=== PATIENT | male | born 1955 | race Caucasian/White ===

== ENCOUNTER 2023-12-17 08:07 | Outpatient (AMB) | payer BC, SELFPAY ==
--- NOTE | 2023-12-17 08:38 | MHC.PC.OV ---
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 Intake Note: New patient visit Seismograph Shooter Required: No Allergies No Known Allergies Allergy (Verified 12/17/23 08:39) Tobacco use date assessed: 12/17/23 Fall risk assessment: No Falls in past year Last assessed Fall Risk: 12/17/23 Dental Screening Dental Screen Date: 12/17/23 Did you have a dental visit in the last 12 months?: Yes Did you have a dental problem in the last 6 months where you did not have access to dental care?: No Was dental information given to patient?: Patient has dentist [facility] Social History (Updated 12/17/23 @ 08:47 by Hattie Urbina [facility]) Housing: House Patient Tobacco Use Status: Never used Tobacco e-Cigarette/Vaping Use: Never Used Second Hand Smoke Exposure: No service: No Current occupational status: retired Cognitive needs: No Hearing needs: No Vision needs: No Questionnaire AUDIT C Alcohol Use Questionnaire (AUDIT-C) 1. How often do you have a drink containing alcohol?: 4 or more times a week 2. How many drinks containing alcohol do you have on a typical day when you are drinking?: 1 or 2 3. How often do you have six or more drinks on one occasion?: Less than monthly (rarely) Total Score: 5 Coding
[2023-12-17 08:47] VITALS: BP 172/92; PULSE 70; RESP 14; TEMP 36.9; O2SAT 97; BMI 30.3
--- NOTE | 2023-12-17 08:52 | AM.OFFWIN_ITS ---
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 Patient Tobacco Use Status: Never used Tobacco Allergies No Known Allergies Allergy (Verified 12/17/23 08:52) Medication List - Last Reconciled 12/17/23 by KATHRYN Barnes- No Known Home Meds HPI HPI Comments History of Present Illness Details 68 y/o male here for a walk in visit for uncontrolled HTN reports white coat syndrome has been w/o PCP for a short time, will be re-est care w/ Dr Nuñez went to [facility] last Sunday - will be having prostate surgery, his BP was 204/95 mg/dl Has never been on medications Denies neuro or cardiac complaints Exam: Awake alert NAD RRR LS CTAB No edema BLE Neurovasc intact Plan: Start losartan 25 mg po QD Monitor BP at home daily and bring log to next appt FU with PCP 1-2 weeks PFS Social History (Updated 12/17/23 @ 08:47 by Hattie Urbina CMA) Housing: House Patient Tobacco Use Status: Never used Tobacco e-Cigarette/Vaping Use: Never Used Second Hand Smoke Exposure: No service: No Current occupational status: retired Cognitive needs: No Hearing needs: No Vision needs: No Physical Exam Vital Signs: Last Vital Signs Temp 98.4 F 12/17/23 08:47 Pulse 70 12/17/23 08:47 Resp 14 12/17/23 08:47 BP 172/92 H 12/17/23 08:47 Pulse Ox 97 12/17/23 08:47 Oxygen Delivery Method Room Air 12/17/23 08:47 BMI result Body Mass Index 30.3 Assessment & Plan Assessment & Plan (1) HTN (hypertension): Code(s): I10 - Essential (primary) hypertension Qualifiers: Hypertension type: primary hypertension Qualified Code(s): I10 - Essential (primary) hypertension Plan: . Plan . Medications: New losartan 25 mg PO DAILY 30 tabs 1RF Patient Instructions: Walk-In Care (Urgent Care): We Make it Easy Walk-in for urgent medical issues such as: ? Seasonal Allergies ? Insect Bites ? Cough ? Diarrhea ? Acute Asthma Attacks ? Back, Knee or Joint Pain ? Ear Infection ? Fever without a Rash ? Headaches ? Nausea ? [place], Rash or Skin Irritation ? Sore Throat ? Sports Physicals ? Vomiting Most insurances are accepted. Patients do not need to be part of the [facility] to seek care at the walk-in clinic. Locations [facility] [place] [address] ? [phone] [facility] in [place] provides services to ages 18 and over. Open Sunday-Sunday: 8 a.m. to 5 p.m. and Sunday: 9 a.m. to 3 p.m.* *Hours may vary due to staffing availability. To confirm Walk-In Care hours in [place], please call [phone]. [address] [place] [address] ? [phone] [facility] in [place] provides services to ages 12 and over. Open Sunday-Sunday: 8 a.m. to 5 p.m. Hours may vary due to staffing availability. To confirm Walk-In Care hours in [place], please call [phone]. LABORATORY SERVICES: [facility] ? Primary Location [address] [place] [address] Sunday through Sunday 6:00 AM ? 5:00 PM Sunday 7:00 AM ? 11:00 AM* [phone] The [facility] is centrally located near the front entrance of the [facility] for easy outpatient access. Convenient parking is provided for outpatients. *Hours may vary due to staffing availability. To confirm Laboratory hours for any location, please call [phone]. Offsite Location For your convenience, we offer offsite laboratory draw stations at the following locations: [address] [place] [address] ? [facility] [address], [address] Sunday through Sunday 7:30 AM ? 1:00 PM* [phone] *Hours may vary due to staffing availability. To confirm Laboratory hours for any location, please call [phone]. [place] ? [address] Sunday through Sunday 6:00 AM ? 3:30 PM* Sunday 6:30 AM ? 3 PM* [phone] *Hours may vary due to staffing availability. To confirm Laboratory hours for any location, please call [phone]. [address] [facility] Sunday through Sunday 7:30 AM ? 4:00 PM* [phone] *Hours may vary due to staffing availability. To confirm Laboratory hours for any location, please call [phone]. [address] [facility] Sunday through 9:00 AM ? 4:00 PM* *Hours may vary due to staffing availability. To confirm Laboratory hours for any location, please call [phone]. Appointments are not necessary. Walk-ins are welcome. Like all the departments throughout the [facility], our Lab undergoes frequent reviews to ensure the quality and accuracy of test results, and our staff takes special pride in its status as a nationally accredited facility. Patient Portal: ONE PATIENT. ONE RECORD. BETTER CARE. [facility] has a fully integrated, cutting- edge mobile electronic health information system that has revolutionized the way we care for our patients and manage our organization. This system improves communication and coordination enabling us to provide safe, higher-quality care, and an overall positive experience for staff and patients. Our first priority, as always, is to deliver the highest quality care possible. The system is running in the background supporting that priority. This portal is for all [facility] services and practices. If you are experiencing any technical difficulties with enrolling or logging into the Patient Portal please complete the [facility] Patient Portal Technical Support Form. [facility] now offers a new secure on-line interactive tool for patients to review their health information ? Patient Portal. This interactive web portal will enable patients and their families to take an active role in their care by providing easy, secure access to their health information via the internet. The Patient Portal provides patients with instant access to their health information, including laboratory results, medications, allergies, demographic information, visit history, and more. In addition to managing their own care, parents and health care proxies with authorized consent will appreciate the ability to access the records of those individuals for whom they provide care. Please note: if you wish to gain access (Proxy) to another patient?s portal, you will be required to come to the Medical Records Department in person at [facility]. Both the patient giving proxy access and the proxy will need to provide photo identification and complete the appropriate authorization. The Patient Portal also allows track their appointments online. The [facility] Patient Portal also saves patients time by allowing them to submit updates to their demographic and contact information prior to their visits. Portal email notifications will also alert patients to any new activity on their portal, such as test results and new appointments. In order to initially enroll in the [facility] Patient Portal, you will need to enter some required information including the following: ? your [facility] Medical Record number ? your personal home email address ? name ? date of Please note: In order to enroll in the [facility] Patient Portal, we need to have your email address on file in your electronic medical record. The email address needs to be specific for one person (yourself) in order for your Portal enrollment to be successful. You can update your email address in person with our Registration staff when you are registering for a hospital visit. Otherwise, you will need to come to the Health Information Management (Medical Records) Department at [facility]. We are open from Sunday ? Sunday from 7:30 a.m. ? 4:30 p.m. You will be required to present a photo id. Once you have successfully enrolled in the Patient Portal, you will receive a one-time user id and password for the Portal, sent to your email address. This will allow you to log into the Patient Portal within 99 hrs and reset your own logon id and password, and define personal security questions. Once your permanent login and password have been set, you can log into the [facility] Patient Portal at any time via the blue button above or from the Portal Logon button on any page of the [facility] website. [facility] encourage all of our patients to enroll in Patient Portal as it presents a valuable opportunity for patients and their families to actively participate in their care and stay healthy Welcome to [facility]. We look forward to working with you. Coding Level of Care Code Est Pt Level 3 (61030) Diagnoses Primary hypertension I10 Hypertension type: primary hypertension
[2023-12-17 08:56] VITALS: BP 158/80
== END 2023-12-17 09:07 | disposition home or self-care (01) ==
PROVIDERS: PCP Internal Medicine; Visit Provider Nurse Practitioner Family
DX: I10 Essential (primary) hypertension (principal)
CPT/HCPCS: 99213

== ENCOUNTER 2023-12-25 08:21 | Outpatient (AMB) | payer BC, SELFPAY ==
[2023-12-25 08:27] VITALS: BP 124/68; PULSE 77; RESP 12; O2SAT 99; BMI 29.7
--- NOTE | 2023-12-25 08:27 | A.OFFPC_ITS ---
Vital Signs 12/25/23 08:27 Height 5 ft 9 in Weight 201 lb BMI 29.7 BP 124/68 Blood Pressure Location Rt brachial Position Sitting Respiration 12 Pulse 77 Pulse Source Pulse Oximeter Pulse Oximetry (%) 99 Oxygen Delivery Method Room Air Intake Visit Reasons: Establish Care not a transfer Intake Note: Patients reports he us here to discuss BP meds. [employer] Clerk Required: No Accompanied by: Self / Same As Patient Allergies No Known Allergies Allergy (Verified 12/17/23 08:52) Fall risk assessment: No Falls in past year Last assessed Fall Risk: 12/25/23 Dental Screening Dental Screen Date: 12/25/23 Did you have a dental visit in the last 12 months?: Yes Did you have a dental problem in the last 6 months where you did not have access to dental care?: No Was dental information given to patient?: Patient has dentist HPI HPI Comments History of Present Illness Details 68 y/o male with a past medical history of hypertension, white coat htn, prostate cancer, presenting for follow up Heme/Onc: Prostate cancer. Upcoming prostectomy. Last visit with [facility] - 204/95 mg/dl. CV: On losartan 25mg daily. Normotensive today. Denies chest pain, dizziness, exertional dyspnea. Preventive Due in 2025 for colon cancer ROS CONSTITUTIONAL: Denies weight loss, fever and chills. HEENT: Denies changes in vision and hearing. RESPIRATORY: Denies SOB and cough. CV: Denies palpitations and CP GI: Denies abdominal pain, nausea, vomiting and diarrhea. : Denies dysuria and urinary frequency. MSK: Denies new myalgia and joint pain. SKIN: Denies rash and pruritus. NEUROLOGICAL: Denies headache PSYCHIATRIC: Denies recent changes in mood. PHYSICAL EXAM: GENERAL: Alert and oriented x 3. NAD EYES: EOMI. Anicteric. HENT: Moist mucous membranes. No scleral icterus. No cervical lymphadenopathy. LUNGS: Clear to auscultation bilaterally. CARDIOVASCULAR: Regular rate and rhythm. No murmur. No JVD. ABDOMEN: Soft, non-tender +bs EXTREMITIES: No edema. Non-tender. SKIN: No rashes or lesions. Warm. NEUROLOGIC: No focal neurological deficits. CN II-XII grossly intact PSYCHIATRIC: Cooperative. Appropriate mood and affect [facility] Medical History (Updated 01/01/24 @ 10:53 by Natalia Nuñez MD) GERD (gastroesophageal reflux disease) Back disorder HTN (hypertension) Melanoma Surgical History (Updated 12/25/23 @ 08:47 by Adrienne Mccormack CMA) Hx of knee surgery Family History (Updated 12/25/23 @ 08:49 by Adrienne Mccormack CMA) Other Stomach cancer Social History (Updated 12/25/23 @ 08:40 by Adrienne Mccormack CMA) Household Members: Significant Other Housing: House Are you a primary lawn care specialist to a significant other at home: No Do you presently have visiting nurse or other home services: No Alcohol intake: current Alcohol intake frequency: 0-2 drinks per day Alcohol type: beer Patient Tobacco Use Status: Never used Tobacco Tobacco use type: Cigarette e-Cigarette/Vaping Use: Never Used Second Hand Smoke Exposure: No service: No Current occupational status: retired Cognitive needs: No Hearing needs: No Vision needs: No Questionnaire PHQ-9 Over the last 2 weeks, how often have you been bothered by any of the following problems? 1. Little interest or pleasure in doing things: not at all 2. Feeling down, depressed, or hopeless: not at all 3. Trouble falling or staying asleep, or sleeping too much: not at all 4. Feeling tired or having little energy: not at all 5. Poor appetite or overeating: not at all 6. Feeling bad about yourself - or that you are a failure or have let yourself or your family down: not at all 7. Trouble concentrating on things, such as reading the newspaper or watching television: not at all 8. Moving or speaking so slowly that other people could have noticed. Or the opposite - being so fidgety or restless that you have been moving around a lot more than usual: not at all 9. Thoughts that you would be better off or of hurting yourself in some way: not at all Total score: 0 Depression Screening Interpretation: Negative Depression Screening Done: Yes 74633 - PHQ-9 Billing: Yes Source: Developed by Drs. Jamie Mora, Rhea Kelley, Zafar Dewitt and colleagues, with an educational yang from [employer]. Thrive Questionnaire Date Thrive assessed: 12/25/23 I am a: Patient What is your living situation today?: I have a steady place to live Within the past 12 months, did the food you bought not last and you didn't have the money to get more?: Never true Within the past 12 months, did you worry whether your food would run out before you got money to buy more?: Never true Do you have trouble paying for medicines?: No Do you have trouble getting transportation to medical appointments?: No Do you have trouble paying your heating and electricity bill?: No Do you have trouble taking care of your child, family member or friend?: No Do you have trouble with day-to-day activities such as bathing, preparing meals, shopping, managing finances, etc.?: No Are you currently unemployed and looking for a job?: No Are you interested in more education?: No Please select the resources that you would like help with: None Currently or been in a relationship where the following occur: No concerns reported THRIVE Score: 0 AUDIT C Alcohol Use Questionnaire (AUDIT-C) 1. How often do you have a drink containing alcohol?: 2-3 times a week 2. How many drinks containing alcohol do you have on a typical day when you are drinking?: 1 or 2 3. How often do you have six or more drinks on one occasion?: Never Total Score: 3 ARJUN-7 AMB Questionnaire ARJUN-7 Date ARJUN - 7 assessed: 12/25/23 Feeling nervous, anxious, or on edge: 0 = Not at all Not being able to stop or control worryin = Not at all Worrying too much about different things: 0 = Not at all Trouble relaxin = Not at all Being so restless that it is hard to sit still: 0 = Not at all Becoming easily annoyed or irritable: 0 = Not at all Feeling afraid as if something awful might happen: 0 = Not at all Total ARJUN-7 score (0-4 normal; 5-9 mild; 10-14 moderate; 15-21 severe): 0 Source: Developed by Drs. Jamie Mora, Rhea Kelley, Zafar Dewitt and colleagues, with an educational yang from [employer]. ARJUN-7 Assessment Billing ARJUN-7 Assessment Tool: ARJUN-7 Assessment 29431 Physical exam (Primary Care) Vital Signs: Last Vital Signs Pulse 77 12/25/23 08:27 Resp 12 12/25/23 08:27 BP 124/68 12/25/23 08:27 Pulse Ox 99 12/25/23 08:27 Oxygen Delivery Method Room Air 12/25/23 08:27 BMI result Body Mass Index 29.7 Tobacco/Smoking Status: Tobacco use Status Patient Tobacco Use Status Never used Tobacco 12/25/23 08:40 Tobacco use type Cigarette 12/25/23 08:40 e-Cigarette/Vaping Use Never Used 12/25/23 08:40 PHQ-9: PHQ-9 Score PHQ-9: Total score 0 01/01/24 10:51 Depression Screening Interpretation: Negative Thrive Assessment: Date of Thrive Assessment Date Thrive assessed 12/25/23 12/25/23 08:40 Currently or been in a relationship where the following occur: No concerns reported Immunizations Boostrix Tdap 2.5 Lf unit-8 mcg-5 Lf/0.5 mL intramuscular syringe Performing Provider: Natalia Nuñez MD Performing Location: [facility] Administered by: Adrienne Mccormack CMA on 12/25/23 09:23 Dose Route Admin Location Dispensed Lot Number Expiration Date NDC Shoe Associate 0.5 mL IM Right Deltoid 0.5 mL [id number] 01/03/26 [id number] [employer] VIS Given Date VIS Provided VIS Publication Date 12/25/23 Single Vaccine 20 Eligibility Eligibility Date Funding Source Not [facility] Eligible 12/25/23 Private Assessment and Plan Assessment & Plan (1) HTN (hypertension): Code(s): I10 - Essential (primary) hypertension Qualifiers: Hypertension type: primary hypertension Qualified Code(s): I10 - Essential (primary) hypertension Plan: Normotensive on current medications (2) GERD (gastroesophageal reflux disease): Code(s): K21.9 - Gastro-esophageal reflux disease without esophagitis Qualifiers: Esophagitis presence: esophagitis presence not specified Qualified Code(s): K21.9 - Gastro-esophageal reflux disease without esophagitis (3) Melanoma: Code(s): C43.9 - Malignant melanoma of skin, unspecified Qualifiers: Melanoma location: unspecified site Qualified Code(s): C43.9 - Malignant melanoma of skin, unspecified Plan: continue follow up with dermatology Orders: Orders Complete Blood Count Auto Diff 12/25/23 C43.9 - Malignant melanoma of skin, unspecified, I10 - Essential (primary) hypertension, K21.9 - Gastro-esophageal reflux disease without esophagitis, Z13.220 - Encounter for screening for lipoid disorders TDaP Immunization 12/25/23 Z23 - Encounter for immunization Comprehensive Met. Panel 12/25/23 C43.9 - Malignant melanoma of skin, unspecified, I10 - Essential (primary) hypertension, K21.9 - Gastro-esophageal reflux disease without esophagitis, Z13.220 - Encounter for screening for lipoid disorders Lipid Panel 12/25/23 C43.9 - Malignant melanoma of skin, unspecified, I10 - Essential (primary) hypertension, K21.9 - Gastro-esophageal reflux disease without esophagitis, Z13.220 - Encounter for screening for lipoid disorders Coding Level of Care Code Est Pt Level 5 (28225) Diagnoses Primary hypertension I10 Hypertension type: primary hypertension Gastroesophageal reflux disease, unspecified whether esophagitis present K21.9 Esophagitis presence: esophagitis presence not specified Malignant melanoma, unspecified site C43.9 Melanoma location: unspecified site Additional Codes ARJUN-7 Assessment Billing - ARJUN-7 Assessment Tool: ARJUN-7 Assessment 64116 ([id number])
== END 2023-12-25 09:35 | disposition home or self-care (01) ==
PROVIDERS: PCP Internal Medicine; Visit Provider Internal Medicine
DX: I10 Essential (primary) hypertension (principal); K21.9 Gastro-esophageal reflux disease without esophagitis; C43.9 Malignant melanoma of skin, unspecified
CPT/HCPCS: 90471; 90715; 99214

== ENCOUNTER 2023-12-25 10:25 | Outpatient (REF) | payer BC, SELFPAY ==
[2023-12-25 16:47] LABS: MANUAL DIFF FLAG NO
[2023-12-25 17:00] LABS: Basophils Absolute Auto 0.1 X10*3/uL (0.0-0.2); Eosinophils Absolute Auto 0.2 X10*3/uL (0.0-0.4); Eosinophils Percent Auto 2.7 % (0-4); Hematocrit 45.4 % (42.0-52.0); Hemoglobin 15.6 g/dl (14.0-18.0); Imm Gran Abs Auto 0.03 X10*3/uL (0.00-0.03); Imm Gran Pct Auto 0.4 % (0.0-0.4); Lymphocytes Percent Auto 25.5 % (20-40); Mean Corpuscular HGB Conc 34.4 g/dl (31.0-36.0); Mean Corpuscular Hemoglobin 31.3 pg (27.0-33.0); Mean Corpuscular Volume 91.2 fL (80.0-98.0); Monocytes Absolute Auto 0.5 X10*3/uL (0.1-1.2); Monocytes Percent Auto 6.4 % (2-11); Platelet Count 172 X10*3/uL (160-400); Red Blood Count 4.98 X10*6/uL (4.60-5.80); Red Cell Distribution Width 12.7 % (11.0-16.0); White Blood Count 7.9 X10*3/uL (4.8-10.8)
[2023-12-25 17:16] LABS: Alanine Aminotransferase 15 U/L (0-40); Albumin Level 4.4 g/dL (3.5-5.0); Alkaline Phosphatase 61 U/L (39-117); Anion Gap 13 (12-20); Aspartate Amino Transferase 16 U/L (5-37); Bilirubin Total 0.6 mg/dL (0.0-1.0); Blood Urea Nitrogen 17 mg/dL (9-16); Calcium 9.9 mg/dL (8.4-10.2); Carbon Dioxide 28 mmol/L (22-29); Chloride 105 mmol/L (96-108); Cholesterol 181 mg/dL (<200); Estimated Glomerular Filt Rate > 60; Glucose Random 96 mg/dL (60-115); HDL Cholesterol 40 mg/dL (>40); LDL Cholesterol Calculated 112 mg/dL (<100); Potassium 5.1 mmol/L (3.3-5.1); Sodium 141 mmol/L (135-145); Total Protein 7.2 g/dL (6.5-8.0); Triglycerides 145 mg/dL (<150)
== END 2023-12-25 10:26 | disposition home or self-care (01) ==
LOC: HO.WFDLDS 10:25
PROVIDERS: Visit Provider Internal Medicine
DX: I10 Essential (primary) hypertension (principal); C43.9 Malignant melanoma of skin, unspecified; K21.9 Gastro-esophageal reflux disease without esophagitis; Z13.220 Encounter for screening for lipoid disorders
CPT/HCPCS: 36415; 80053; 80061; 85025

== ENCOUNTER 2024-04-15 15:53 | Outpatient (AMB) | payer BC, SELFPAY ==
--- NOTE | 2024-04-15 16:04 | MHC.PC.OV ---
Vital Signs 04/15/24 16:07 04/15/24 16:11 Height 5 ft 9 in Weight 200 lb BMI 29.5 BP 146/72 H 124/72 Blood Pressure Location Lt brachial Lt brachial Position Sitting Sitting Pulse 62 Pulse Source Pulse Oximeter Pulse Oximetry (%) 98 Oxygen Delivery Method Room Air Intake Visit Reasons: PE Allergies No Known Allergies Allergy (Verified 04/15/24 16:06) Tobacco use date assessed: 04/15/24 Fall risk assessment: No Falls in past year Last assessed Fall Risk: 04/15/24 Dental Screening Dental Screen Date: 12/25/23 HPI HPI Comments History of Present Illness Details 68 y/o male with a past medical history of hypertension, white coat htn, prostate cancer, presenting for follow up Heme/Onc: Prostate cancer. Status post prostectomy 12/2023-[facility] CV: On losartan 25mg daily. Normotensive today. Readings high on home machine +10-15 systolic/+20 diastolic versus office readings. Denies chest pain, dizziness, exertional dyspnea. Follows with dermatology. History of melanoma, scattered nevi etc Preventive Due in 2025 for colon cancer Due for today Due for shingles-will get at pharmacy. ROS CONSTITUTIONAL: Denies weight loss, fever and chills. HEENT: Denies changes in vision and hearing. RESPIRATORY: Denies SOB and cough. CV: Denies palpitations and CP GI: Denies abdominal pain, nausea, vomiting and diarrhea. : Denies dysuria and urinary frequency. MSK: Denies new myalgia and joint pain. SKIN: Denies rash and pruritus. NEUROLOGICAL: Denies headache PSYCHIATRIC: Denies recent changes in mood. PHYSICAL EXAM: GENERAL: Alert and oriented x 3. NAD EYES: EOMI. Anicteric. HENT: Moist mucous membranes. No scleral icterus. No cervical lymphadenopathy. LUNGS: Clear to auscultation bilaterally. CARDIOVASCULAR: Regular rate and rhythm. No murmur. No JVD. ABDOMEN: Soft, non-tender +bs : Declines EXTREMITIES: No edema. Non-tender. SKIN: No rashes. Scattered nevi, mild rosacea NEUROLOGIC: No focal neurological deficits. CN II-XII grossly intact PSYCHIATRIC: Cooperative. Appropriate mood and affect [facility] Medical History GERD (gastroesophageal reflux disease) Back disorder HTN (hypertension) Melanoma Surgical History H/O radical prostatectomy Hx of knee surgery Family History Other Family history unknown Stomach cancer Social History Household Members: Significant Other Housing: House Are you a primary career technical education instructor to a significant other at home: No Do you presently have visiting nurse or other home services: No 75 years or older and lives alone: No Alcohol intake: current Alcohol intake frequency: 0-2 drinks per day Alcohol type: beer Patient Tobacco Use Status: Current someday Tobacco user Tobacco use type: Cigarette Cigarette Packs Per Day: 0.25 Years Smoked: 30 e-Cigarette/Vaping Use: Never Used Second Hand Smoke Exposure: No service: No Current occupational status: retired Cognitive needs: No Hearing needs: No Vision needs: No Questionnaire Thrive Questionnaire Date Thrive assessed: 04/08/24 I am a: Patient What is your living situation today?: I have a steady place to live Within the past 12 months, did the food you bought not last and you didn't have the money to get more?: Never true Within the past 12 months, did you worry whether your food would run out before you got money to buy more?: Never true Do you have trouble paying for medicines?: No Do you have trouble getting transportation to medical appointments?: No Do you have trouble paying your heating and electricity bill?: No Do you have trouble taking care of your child, family member or friend?: No Do you have trouble with day-to-day activities such as bathing, preparing meals, shopping, managing finances, etc.?: No Are you currently unemployed and looking for a job?: No Are you interested in more education?: No Please select the resources that you would like help with: None Currently or been in a relationship where the following occur: No concerns reported THRIVE Score: 0 AUDIT C Alcohol Use Questionnaire (AUDIT-C) 2. How many drinks containing alcohol do you have on a typical day when you are drinking?: 1 or 2 Total Score: 0 ARJUN-7 AMB Questionnaire ARJUN-7 Date ARJUN - 7 assessed: 12/25/23 Feeling nervous, anxious, or on edge: 0 = Not at all Not being able to stop or control worryin = Not at all Worrying too much about different things: 0 = Not at all Trouble relaxin = Not at all Being so restless that it is hard to sit still: 0 = Not at all Becoming easily annoyed or irritable: 0 = Not at all Feeling afraid as if something awful might happen: 0 = Not at all Total ARJUN-7 score (0-4 normal; 5-9 mild; 10-14 moderate; 15-21 severe): 0 Source: Developed by Drs. Jamie Mora, Rhea Kelley, Zafar Dewitt and colleagues, with an educational yang from [employer]. Physical exam (Primary Care) Vital Signs: Last Vital Signs Pulse 62 04/15/24 16:07 BP 124/72 04/15/24 16:11 Pulse Ox 98 04/15/24 16:07 Oxygen Delivery Method Room Air 04/15/24 16:07 BMI result Body Mass Index 29.5 Tobacco/Smoking Status: Tobacco use Status Tobacco use date assessed 04/15/24 04/15/24 16:11 Patient Tobacco Use Status Current someday Tobacco 04/15/24 16:11 Tobacco use type Cigarette 04/15/24 16:06 e-Cigarette/Vaping Use Never Used 04/15/24 16:06 Thrive Assessment: Date of Thrive Assessment Date Thrive assessed 04/08/24 04/15/24 16:04 Currently or been in a relationship where the following occur: No concerns reported Immunizations pneumoc 20-colten conj-dip cr(PF) 0.5 mL IM syringe Performing Provider: Natalia Nuñez MD Performing Location: [facility] [place] Family Medicine Administered by: Amna Vogt RN on 04/15/24 16:55 Dose Route Admin Location Dispensed Lot Number Expiration Date [facility] Cancer Registry Coordinator 0.5 mL IM Right Deltoid 0.5 mL [id number] 08/25/24 1199-7015-43 WYETH/PFIZER VIS Given Date VIS Provided VIS Publication Date 04/15/24 Single Vaccine 21 Eligibility Eligibility Date Funding Source Not [facility] Eligible 04/15/24 Private Coding Level of Care Code Est Pt Prev Care >65y(21573) Diagnoses Physical exam Z00.00 Malignant melanoma, unspecified site C43.9 Melanoma location: unspecified site Primary hypertension I10 Hypertension type: primary hypertension Assessment & Plan Assessment & Plan (1) Physical exam: Code(s): Z00.00 - Encounter for general adult medical examination without abnormal findings Category: Medical Plan: Preventive measures for age discussed Shingles, RSV, flu and COVID recommended (2) Melanoma: Code(s): C43.9 - Malignant melanoma of skin, unspecified Category: Medical Qualifiers: Melanoma location: unspecified site Qualified Code(s): C43.9 - Malignant melanoma of skin, unspecified Plan: Referral already placed to dermatology (3) HTN (hypertension): Code(s): I10 - Essential (primary) hypertension Category: Medical Qualifiers: Hypertension type: primary hypertension Qualified Code(s): I10 - Essential (primary) hypertension Plan: Adequately controlled on current medication Orders: Orders Pneumococcal 20 Immunization 04/15/24 Z23 - Encounter for immunization Medications: Changed From tadalafil (Cialis) Take an additional 10mg one hour prior to sexual activity as needed for erectile dysfunction 5 mg PO DAILY 110 tabs 3RF To tadalafil (Cialis) Take one tab oral daily and take an additional 10mg one hour prior to sexual activity as needed for erectile dysfunction 5 mg PO DAILY 110 tabs 3RF Refilled losartan 25 mg PO DAILY 90 tabs 3RF 90 days
[2024-04-15 16:07] VITALS: BP 146/72; PULSE 62; O2SAT 98; BMI 29.5
[2024-04-15 16:11] VITALS: BP 124/72
== END 2024-04-15 16:57 | disposition home or self-care (01) ==
PROVIDERS: PCP Internal Medicine; Visit Provider Internal Medicine
DX: Z00.00 Encounter for general adult medical examination without abnormal findings (principal); C43.9 Malignant melanoma of skin, unspecified; I10 Essential (primary) hypertension

== ENCOUNTER → 2024-04-15 15:53 | Outpatient (BNVA) | payer BC, SELFPAY | PROVIDERS: PCP Internal Medicine; Visit Provider Internal Medicine | DX: Z00.00 Encounter for general adult medical examination without abnormal findings (principal); Z23 Encounter for immunization; C43.9 Malignant melanoma of skin, unspecified; I10 Essential (primary) hypertension | CPT/HCPCS: 90471; 90677 ==

== ENCOUNTER 2024-10-14 15:35 | Outpatient (AMB) | payer BC, SELFPAY ==
--- NOTE | 2024-10-14 15:40 | A.OFFPC_ITS ---
Vital Signs 10/14/24 15:43 Height 5 ft 9 in Weight 212 lb BMI 31.3 BP 142/70 H Blood Pressure Location Rt brachial Position Sitting Respiration 14 Pulse 58 Pulse Source Pulse Oximeter Pulse Oximetry (%) 98 Oxygen Delivery Method Room Air Intake Visit Reasons: f/u Intake Note: Follow up. Lower back pain, both sides, goes down the legs. Equipment Operation Instructor Required: No Allergies No Known Allergies Allergy (Verified 10/14/24 15:42) Medication List - Last Reconciled 10/15/24 by Natalia Nuñez MD cyclobenzaprine 10 mg (2 x 5 mg) PO BEDTIME PRN losartan 25 mg PO DAILY 90 days oxycodone 5 mg PO Q8H PRN prednisone 40 mg (2 x 20 mg) PO DAILY tadalafil (Cialis) 5 mg PO DAILY Tobacco use date assessed: 10/14/24 Fall risk assessment: No Falls in past year Last assessed Fall Risk: 10/14/24 Dental Screening Dental Screen Date: 10/14/24 Did you have a dental visit in the last 12 months?: Yes Did you have a dental problem in the last 6 months where you did not have access to dental care?: No Was dental information given to patient?: Patient has dentist HPI HPI Comments History of Present Illness Details 68 y/o male with a past medical history of hypertension, white coat htn, prostate cancer, presenting for follow up He has been plagued by low back pain with radiculopathy over the past two months. He felt a twinge/snap in the low back in July. Has pain in lumbar spine, into the bilateral buttocks and burning pain down the posterior and anterior thigh. It is very difficult for him to stand up and walk in the morning. Also increases with overuse. Taking advil daily. Reports numbness and weakness of the left leg. Previous issues with neck pain, DDD-has seen PSS in the past Heme/Onc: Prostate cancer. Status post prostectomy 12/2023-[facility] CV: On losartan 25mg daily. elevated today says his pain levels have been persistently high. Denies chest pain, dizziness, exertional dyspnea. Follows with dermatology. History of melanoma, scattered nevi etc Preventive Due in 2025 for colon cancer ROS see HPI PHYSICAL EXAM: GENERAL: Alert and oriented x 3. NAD EYES: EOMI. Anicteric. HENT: Moist mucous membranes. No scleral icterus. No cervical lymphadenopathy. LUNGS: Clear to auscultation bilaterally. CARDIOVASCULAR: Regular rate and rhythm. No murmur. No JVD. ABDOMEN: Soft, non-tender +bs : Declines EXTREMITIES: No edema. Non-tender. SKIN: No rashes. Scattered nevi, mild rosacea NEUROLOGIC: 5/5 dorsi/plantarflexion, 3/5 knee to hip flexion, altered sensation PSYCHIATRIC: Cooperative. Appropriate mood and affect [facility] Medical History GERD (gastroesophageal reflux disease) Back disorder HTN (hypertension) Melanoma Surgical History H/O radical prostatectomy Hx of knee surgery Family History Other Family history unknown Stomach cancer Social History Household Members: Significant Other Housing: House Are you a primary career technical counselor to a significant other at home: No Do you presently have visiting nurse or other home services: No 75 years or older and lives alone: No Alcohol intake: current Alcohol intake frequency: 0-2 drinks per day Alcohol type: beer Patient Tobacco Use Status: Current someday Tobacco user Tobacco use type: Cigarette Cigarette Packs Per Day: 0.25 Years Smoked: 30 e-Cigarette/Vaping Use: Never Used Second Hand Smoke Exposure: No service: No Current occupational status: retired Cognitive needs: No Hearing needs: No Vision needs: No Questionnaire PHQ-9 Over the last 2 weeks, how often have you been bothered by any of the following problems? 1. Little interest or pleasure in doing things: not at all 2. Feeling down, depressed, or hopeless: not at all 3. Trouble falling or staying asleep, or sleeping too much: not at all 4. Feeling tired or having little energy: not at all 5. Poor appetite or overeating: not at all 6. Feeling bad about yourself - or that you are a failure or have let yourself or your family down: not at all 7. Trouble concentrating on things, such as reading the newspaper or watching television: not at all 8. Moving or speaking so slowly that other people could have noticed. Or the opposite - being so fidgety or restless that you have been moving around a lot more than usual: not at all 9. Thoughts that you would be better off or of hurting yourself in some way: not at all Total score: 0 Depression Screening Interpretation: Negative Depression Screening Done: Yes 86133 - PHQ-9 Billing: Yes Source: Developed by Drs. Jamie Mora, Rhea Kelley, Zafar Dewitt and colleagues, with an educational yang from [employer]. Thrive Questionnaire Date Thrive assessed: 10/14/24 I am a: Patient What is your living situation today?: I have a steady place to live Within the past 12 months, did the food you bought not last and you didn't have the money to get more?: Never true Within the past 12 months, did you worry whether your food would run out before you got money to buy more?: Never true Do you have trouble paying for medicines?: No Do you have trouble getting transportation to medical appointments?: No Do you have trouble paying your heating and electricity bill?: No Do you have trouble taking care of your child, family member or friend?: No Do you have trouble with day-to-day activities such as bathing, preparing meals, shopping, managing finances, etc.?: No Are you currently unemployed and looking for a job?: No Are you interested in more education?: No Please select the resources that you would like help with: None Currently or been in a relationship where the following occur: No concerns reported THRIVE Score: 0 AUDIT C Alcohol Use Questionnaire (AUDIT-C) 1. How often do you have a drink containing alcohol?: 2-3 times a week 3. How often do you have six or more drinks on one occasion?: Never Total Score: 3 ARJUN-7 AMB Questionnaire ARJUN-7 Date ARJUN - 7 assessed: 10/14/24 Feeling nervous, anxious, or on edge: 0 = Not at all Not being able to stop or control worryin = Not at all Worrying too much about different things: 0 = Not at all Trouble relaxin = Not at all Being so restless that it is hard to sit still: 0 = Not at all Becoming easily annoyed or irritable: 0 = Not at all Feeling afraid as if something awful might happen: 0 = Not at all Total ARJUN-7 score (0-4 normal; 5-9 mild; 10-14 moderate; 15-21 severe): 0 Source: Developed by Drs. Jamie Mora, Rhea Kelley, Zafar Dewitt and colleagues, with an educational yang from [employer]. ARJUN-7 Assessment Billing ARJUN-7 Assessment Tool: ARJUN-7 Assessment 38872 Physical exam (Primary Care) Vital Signs: Last Vital Signs Pulse 58 10/14/24 15:43 Resp 14 10/14/24 15:43 BP 142/70 H 10/14/24 15:43 Pulse Ox 98 10/14/24 15:43 Oxygen Delivery Method Room Air 10/14/24 15:43 BMI result Body Mass Index 31.3 Tobacco/Smoking Status: Tobacco use Status Tobacco use date assessed 10/14/24 10/14/24 15:45 Patient Tobacco Use Status Current someday Tobacco 10/14/24 15:45 Tobacco use type Cigarette 10/14/24 15:45 e-Cigarette/Vaping Use Never Used 10/14/24 15:45 PHQ-9: PHQ-9 Score PHQ-9: Total score 0 10/14/24 15:55 Depression Screening Interpretation: Negative Thrive Assessment: Date of Thrive Assessment Date Thrive assessed 10/14/24 10/14/24 15:45 Currently or been in a relationship where the following occur: No concerns reported Coding Level of Care Code Est Pt Level 4 (79991) Complex EM visit Add On G2211 Diagnoses Lumbosacral radiculopathy at L3 M54.17 Lower extremity weakness R29.898 History of prostate cancer Z85.46 Primary hypertension I10 Hypertension type: primary hypertension Additional Codes ARJUN-7 Assessment Billing - ARJUN-7 Assessment Tool: ARJUN-7 Assessment 98805 ([id number]) PHQ-9 - 03921 - PHQ-9 Billing: Yes ([id number]) Assessment & Plan Assessment & Plan (1) Lumbosacral radiculopathy at L3: Code(s): M54.17 - Radiculopathy, lumbosacral region Category: Medical (2) Lower extremity weakness: Code(s): R29.898 - Other symptoms and signs involving the musculoskeletal system Category: Medical (3) History of prostate cancer: Code(s): Z85.46 - Personal history of malignant neoplasm of prostate Category: Medical (4) HTN (hypertension): Code(s): I10 - Essential (primary) hypertension Category: Medical Qualifiers: Hypertension type: primary hypertension Qualified Code(s): I10 - Essential (primary) hypertension Plan 69 year old for follow up L3 myelopathy, bilateral lumbosacral radiculopathy requiring MRI imaging Referral to PSS Predisone, flexeril prn night, oxicidone prn day for pain >5 after advil Labs ordered Will hold on current antihypertensive dose given pain levels Orders: Orders Complete Blood Count Auto Diff 10/14/24 C43.9 - Malignant melanoma of skin, u nspecified, I10 - Essential (primary) hypertension, K21.9 - Gastro-esophageal reflux disease without esophagitis, Z13.220 - Encounter for screening for lipoid disorders Comprehensive Met. Panel 10/14/24 C43.9 - Malignant melanoma of skin, unspecified, I10 - Essential (primary) hypertension, K21.9 - Gastro-esophageal reflux disease without esophagitis, Z13.220 - Encounter for screening for lipoid disorders Lipid Panel 10/14/24 C43.9 - Malignant melanoma of skin, unspecified, I10 - Essential (primary) hypertension, K21.9 - Gastro-esophageal reflux disease without esophagitis, Z13.220 - Encounter for screening for lipoid disorders Hemoglobin A1c 10/14/24 C43.9 - Malignant melanoma of skin, unspecified, I10 - Essential (primary) hypertension, K21.9 - Gastro-esophageal reflux disease without esophagitis, Z13.220 - Encounter for screening for lipoid disorders XR lumbar spine 2-3V 10/14/24 M54.16 - Radiculopathy, lumbar region, M54.17 - Radiculopathy, lumbosacral region, M54.50 - Low back pain, unspecified, R29.898 - Other symptoms and signs involving the musculoskeletal system MR lumbar spine wo con 10/14/24 M54.16 - Radiculopathy, lumbar region, M54.17 - Radiculopathy, lumbosacral region, M54.50 - Low back pain, unspecified, R29.898 - Other symptoms and signs involving the musculoskeletal system, Z85.46 - Personal history of malignant neoplasm of prostate Referrals Orthopedics Referral M54.16 - Radiculopathy, lumbar region, M54.17 - Radiculopathy, lumbosacral region, M54.50 - Low back pain, unspecified, R29.898 - Other symptoms and signs involving the musculoskeletal system Medications: New prednisone 40 mg (2 x 20 mg) PO DAILY 10 tabs 0RF oxycodone Partial Fill upon patient request. 5 mg PO Q8H PRN 21 tabs 0RF pain cyclobenzaprine 10 mg (2 x 5 mg) PO BEDTIME PRN 60 tabs 3RF muscle spasm
[2024-10-14 15:43] VITALS: BP 142/70; PULSE 58; RESP 14; O2SAT 98; BMI 31.3
--- OUTSIDE RECORDS SUMMARY | 2024-10-14 16:33 | XMS_ITS | Clinical Summary ---
Author Organization [facility] Address [address] [place] [address] Care Team Providers Care Adoption Worker Name Role Phone Richie Jackson MD Primary Care Provider Surgical History Surgery Date Site/Laterality Comments KNEE ARTHROPLASTY 1989, 2000 PROCEDURE: MI ARTHRS KNEE ABRASION ARTHRP/INSPECTOR TECHNICIAN DRLG/MICROFX; COMMENT: r and l, ACL, meniscus, MCL EYE SURGERY PROCEDURE: MI TRABECULOPLASTY BY LASER SURGERY; COMMENT: Lasik OTHER SURGICAL HISTORY 2005 PROCEDURE: MI OPEN TREATMENT NASAL FRACTURE UNCOMPLICATED OTHER SURGICAL HISTORY PROCEDURE: SKIN PUNCH BIOPSY; COMMENT: and resection 3 locations COLONOSCOPY 11/22/06 PROCEDURE: HISTORICAL COLONOSCOPY; COMMENT: signoid adenoma; repeat in three years COLONOSCOPY 06/13/10 PROCEDURE: MI COLONOSCOPY STOMA DX INCLUDING COLLJ SPEC SPX; COMMENT: tics; repeat in five years COLONOSCOPY 06/25/15 PROCEDURE: HISTORICAL COLONOSCOPY; COMMENT: tics; repeat in 5 yrs Medical History Medical History Date Comments Other acne DX:Other acne; C OMMENT: accutane Calculus of kidney DX:Calculus o f kidney Pneumonia due to adenovirus age 22 DX:P neumonia due to adenovirus; COMMENT: outpatient Right bundle branch block 05/02/2006 DX:Rig ht bundle branch block Degeneration of cervical intervertebral disc DX:Degeneration of cervical intervertebral disc; COMMENT: C6- C7 - [place] sins and sport Cervical disc syndrome 2009 DX:Cervic al disc syndrome Back pain 2009 DX:Back pain Elbow pain 2009 DX:Elbow pain Hyperlipidemia 01/08/2012 DX:Hyperlipidemi a History of malignant melanoma 03/30/2014 DX :History of malignant melanoma; COMMENT: Left posterior shoulder, 2.7mm; righ chest, 0.25 mm; left ear, MIS Family History Medical History Relation Name Comments Colon polyps Mother pre cancerous a ge apprx 64 Other: gallbladder problem Mother Other: gallbladder problem Other 1 m ultiple half siblings Relation Name Status Comments Brother Alive Half brother - back pain; psoriasis; hip; TKR; Factor V Father Other Patient is adop an[place] and limited info available. Maternal Grandfather (Age 90s) U K Maternal Grandmother (Age 90s) U K Mother colon polyp - s tomach cancer and gall stones; thyroid; Other 1 Other 2 Sister 1 Alive 1/2 sister fact o V, thyroid cancer, stomach polyp; stomach biopsy Sister 2 Alive 1/2 sister Fact or V Sister 3 Alive 1/2 sister - he althy Social History Tobacco Use Types Packs/Day Years Used Date Smoking Tobacco: Former Cigarettes Q uit: 05/28/2002 Smokeless Tobacco: Never Alcohol Use Standard Drinks/Week Comments Yes 0 (1 standard drink = 0.6 oz pur e alcohol) Sex and Gender Information Value Date Recorded Sex Assigned at Not on file Legal Sex Male 8:07 AM EST Gender Identity Not on file Sexual Orientation Not on file Obstetrics History Plan of Treatment Health Maintenance Due Date Last Done Comments Pneumococcal Vaccine: 50+ Years (1 of 1 - PCV) 2006 Zoster Vaccines (2 of 3) 06/01/2017 04/06/2017 DTaP,Tdap,and Td Vaccines (3 - Td or Tdap) 06/26/2021 06/26/2011, 08/01/2005 Abdominal Aortic Aneurysm (AAA) Screen 04/30/2022 Cholesterol Screening (Lipid Panel) 04/30/2022 Depression Screening 04/30/2022 Falls Risk Assessment 04/30/2022 Hepatitis C Screening 04/30/2022 Social Influencers of Health Screening 04/30/2022 COVID-19 Vaccine ( season) 2024 06/11/2021, 09/11/2020, 08/21/2020 Influenza Vaccine (Season Ended) 2025 03/18/2021, 05/06/2019, 04/13/2018, Additional history exists Colorectal Cancer Screening: Colonoscopy 01/19/2026 RSV Immunization Adult Patients (1 - 1-dose 75+ series) 09/22/2031 HIB Vaccines Aged Out No longer eligi ble based on patient's age to complete this topic HPV Vaccines Aged Out No longer eligi ble based on patient's age to complete this topic Hepatitis A Vaccines Aged Out No long er eligible based on patient's age to complete this topic Hepatitis B Vaccines Aged Out No long er eligible based on patient's age to complete this topic IPV Vaccines Aged Out No longer eligi ble based on patient's age to complete this topic MMR Vaccines Aged Out No longer eligi ble based on patient's age to complete this topic Meningococcal ACWY Vaccine Aged Out N o longer eligible based on patient's age to complete this topic Meningococcal B Vaccine Aged Out No l onger eligible based on patient's age to complete this topic RSV Immunization Patients Under 20 months Aged Out No longer eligible based on patient's age to complete this topic Varicella Vaccines Aged Out No longer eligible based on patient's age to complete this topic Care Teams Adoption Worker Relationship Specialty Start Date End Date Richie Jackson MD [address] [place] [address] Dr Britni MA PCP - General 01/25/24
== END 2024-10-14 16:18 | disposition home or self-care (01) ==
LOC: HO.HMCFM 15:35
PROVIDERS: PCP Internal Medicine; Visit Provider Internal Medicine
DX: M54.17 Radiculopathy, lumbosacral region (principal); R29.898 Other symptoms and signs involving the musculoskeletal system; Z85.46 Personal history of malignant neoplasm of prostate; I10 Essential (primary) hypertension

== ENCOUNTER → 2024-10-14 15:35 | Outpatient (BNVA) | payer BC, SELFPAY | PROVIDERS: PCP Internal Medicine; Visit Provider Internal Medicine | DX: I10 Essential (primary) hypertension (principal); C61 Malignant neoplasm of prostate; M54.17 Radiculopathy, lumbosacral region; R29.898 Other symptoms and signs involving the musculoskeletal system; C43.9 Malignant melanoma of skin, unspecified; K21.9 Gastro-esophageal reflux disease without esophagitis; Z85.46 Personal history of malignant neoplasm of prostate | CPT/HCPCS: 96127 ==

== ENCOUNTER → 2024-11-02 11:11 | Outpatient (BNV) | payer BC, SELFPAY | PROVIDERS: PCP Internal Medicine; Visit Provider Radiology Diagnostic Radiology | DX: M47.816 Spondylosis without myelopathy or radiculopathy, lumbar region (principal); M48.061 Spinal stenosis, lumbar region without neurogenic claudication | CPT/HCPCS: 72148 ==

== ENCOUNTER 2024-11-02 11:12 | Outpatient (REF) | payer BC, SELFPAY ==
--- NOTE | ~2024-11-02 | MR_ITS ---
EXAMINATION: MR LUMBAR SPINE WITHOUT CONTRAST CLINICAL INFORMATION: Other signs and symptoms involving the musculoskeletal system. Low back pain radiating to both sides buttocks left greater than right, symptoms since 07/2024. COMPARISON: No prior. TECHNIQUE: Multiplanar multisequence MR imaging of the lumbar spine was done without IV contrast. Examination was performed on a 1.5 Maria Guadalupe Siemens magnet, utilizing standard sequences. FINDINGS: CORONAL ALIGNMENT: -There is a trace levoconvex scoliosis, apex at L4. SAGITTAL ALIGNMENT: - There is a normal lumbar lordosis. -There is a 2 mm degenerative retrolisthesis of L2 on L3. -There is a 3 mm degenerative anterolisthesis L4 on L5, and a 3 mm degenerative retrolisthesis L5-S1. LUMBOSACRAL JUNCTION: -Normal. There are 5 [id number] lumbar-type vertebral bodies. VERTEBRAL BODIES/BONE MARROW: -There are no compression deformities or fractures. Minimal edematous type endplate changes present at L5-S1. Trace changes also noted at L4-5 anteriorly. -Small Schmorl's node herniation dorsal aspect inferior endplate L1. -No abnormal infiltrating bone marrow signal identified. There are a few scattered hemangiomata present. DISCS: -Moderate loss of disc signal with mild loss of disc height spanning L2-S1. -Mild loss of disc height without significant loss of disc signal at T11-L2. SPINAL CANAL: -No abnormal developmental findings. CONUS MEDULLARIS: -Terminates at L1. Morphology and signal is normal. INTRADURAL NERVE ROOTS: - Normal in appearance without significant clumping or focal nerve root mass. Axial Disc Space Images: T12-L1: No significant central canal or neural foraminal narrowing. Normal facets. L1-L2: Minimal disc bulging, without significant mass effect. Mild hypertrophic degenerative facet changes bilaterally. No significant central canal narrowing. There is mild bilateral neural foraminal narrowing. L2-L3: Mild hypertrophic degenerative facet changes bilaterally. Small bilateral foraminal protrusions of disc material. Minimal central canal stenosis and mild subarticular recess stenosis. There is mild bilateral neural foraminal stenosis. L3-L4: Shallow bulging disc present, with superimposed left greater than right foraminal protrusions of disc material. Mild to moderate hypertrophic degenerative facet changes bilaterally, with moderate to severe ligamentous thickening/infolding. There is mild central canal stenosis, mild bilateral subarticular recess stenosis, and mild left greater than right neural foraminal stenosis. L4-L5: There is disc uncovering secondary to anterolisthesis, a diffuse disc extrusion, severe bilateral hypertrophic degenerative facet changes bilaterally with bilateral posterior ligamentous thickening/infolding, with the combination of findings resulting in severe central canal stenosis, severe bilateral subarticular recess stenosis, and moderate right greater than left neural foraminal stenosis. The central canal has been reduced to approximately 5 mm AP diameter (series 10, image 27). There is undoubtedly underlying impingement of the traversing bilateral L5 nerve roots, and possibly mass effect upon the S1 roots as well. L5-S1: There is a broad-based central disc protrusion with annular fissuring present. This indents upon the ventral thecal sac and combined with mild left greater than right hypertrophic facet changes is resulting in mild to moderate central canal stenosis, mild bilateral subarticular recess stenosis with contact but no impingement of the traversing left S1 roots. There is moderate left and mild right neural foraminal narrowing. IMAGED SI JOINTS: -Mild degenerative arthritis bilaterally. PARAVERTEBRAL AND INCLUDED EXTRASPINAL SOFT TISSUES: -Mild edema within the right paraspinous musculature, likely muscular strain (series 7, image 1) . There is significant ectasia and atheromatous disease of the aorta. There is no aneurysm identified. MR/MR lumbar spine wo con IMPRESSION: 1. Diffuse spondylosis, moderate in severity. There is focal severe change at L4-5 resulting in severe central canal stenosis, severe bilateral subarticular recess stenosis, and moderate right greater than left neural foraminal stenosis. 2. See the body of the report for additional findings. Electronically signed by: Andrez Mercer MD 11/03/2024 11:16 AM EDT
== END 2024-11-02 11:13 | disposition home or self-care (01) ==
LOC: HO.MRI 11:12
PROVIDERS: PCP Internal Medicine; Visit Provider Internal Medicine
DX: M54.17 Radiculopathy, lumbosacral region (principal); M54.50 Low back pain, unspecified; M54.16 Radiculopathy, lumbar region; R29.898 Other symptoms and signs involving the musculoskeletal system; Z85.46 Personal history of malignant neoplasm of prostate
CPT/HCPCS: 72148

== ENCOUNTER 2024-11-14 09:35 | Outpatient (REF) | payer BC, SELFPAY ==
--- NOTE | ~2024-11-14 | XR_ITS ---
EXAMINATION: X-ray lumbar spine. CLINICAL INFORMATION: Radiculopathy, lumbar region. TECHNIQUE: AP and lateral views. Lateral views during flexion and extension position. COMPARISON: Correlated to MRI dated November 02, 2024. FINDINGS: There is a levoconvex curvature of the lower lumbar spine apex at L3-4. Multilevel marginal osteophyte formation and endplate sclerosis. There is a grade 1 anterolisthesis L4-5 which persists during flexion and extension position. Grade 1 retrolisthesis at L5-S1 and L2-3 which persists during flexion and extension position. No acute cortical disruption. No lytic or blastic lesions. Vascular calcifications, aorta. XR/XR lumbar spine 4V min IMPRESSION: Multilevel thoracolumbar spondylosis levoconvex scoliosis and grade 1 anterolisthesis L4-5 and likely grade 1 retrolisthesis L5-S1 and L2-3 without gross instability. Electronically signed by: Wilton Torrez MD 11/14/2024 11:19 AM EDT
== END 2024-11-14 09:36 | disposition home or self-care (01) ==
LOC: HO.HOSX 09:35
PROVIDERS: PCP Internal Medicine; Referring Provider Internal Medicine; Visit Provider Physician Assistant
DX: M54.16 Radiculopathy, lumbar region (principal)
CPT/HCPCS: 72110

== ENCOUNTER 2024-11-14 09:35 | Outpatient (AMB) | payer BC, SELFPAY ==
--- OUTSIDE RECORDS SUMMARY | 2024-11-14 09:49 | XMS_ITS | Clinical Summary ---
Author Organization [employer] [facility] Address [address] [place] [address] Care Team Providers Care Materials Technician Name Role Phone Richie Jackson MD Primary Care Provider Surgical History Surgery Date Site/Laterality Comments KNEE ARTHROPLASTY 1989, 2000 PROCEDURE: [place] ARTHRS KNEE ABRASION ARTHRP/BANK CONSULTANT DRLG/MICROFX; COMMENT: r and l, ACL, meniscus, [...] cervical intervertebral disc; COMMENT: C6- C7 - [facility] Cervical disc syndrome 2009 [...] age to complete this topic Care Teams Materials Technician Relationship Specialty Start Date End Date Richie Jackson MD [address] [place] [address] Dr Britni MA PCP - General 01/25/24
--- NOTE | 2024-11-14 09:58 | A.SPINEOV_ITS ---
Intake Visit Reasons: lumbar radiculopathy Intake Note: Mr. Osman is here today c/o low back pain that radiates down to the back of both legs. Bar Back Required: No Allergies No Known Allergies Allergy (Verified 11/14/24 09:59) Assessment & Plan Assessment & Plan (1) Lumbar radiculopathy: Code(s): M54.16 - Radiculopathy, lumbar region Category: Medical Plan Dear Dr Martinez, Thank you for referring Mr Osman to our office today. This is a very nice 69-year-old gentleman presents to the office today for evaluation of left- sided low back pain with bilateral pain radiating into his hamstrings stopping at about the level of his knee. The pain started in July, he was bending forward to put his underwear on felt a pinching sensation in his low back. Over the course of a week or 2 that faded away to more of a dull ache, but it transitioned into bilateral lower extremity pain going into his hamstrings stopping just above his knee. Since that time it is more less been the same. It is there all the time but his aggravated with activity, specifically walking. If he takes an Advil and oxycodone combination he has good for about 2 or 3 hours. He is okay when he is sleeping he is okay if he is sitting in a flexed posture. He is very frustrated with his quality of life because he is very active gentleman and this is keeping him from doing things that he enjoys. He still continuing to work and golf, however he is very reliant on the pain m edication combination. He has not yet done any physical therapy, or any other conservative treatments. He had undergone an MRI showing multiple degenerative findings but most significantly problems at L4-5. PMH: Reasonably healthy gentleman, history of hypertension for which he takes losartan, he has had knee arthroscopies, he had robotic removal of his prostate last year for prostate cancer, he has had multiple melanomas removed from his body. Other than that he does not report any major cardiac or pulmonary issues. No liver or kidney issues, bleeding disorders or blood clots. No other major surgery other than the resection of the prostate. Social hx: She smokes about 1 pack of cigarettes a week, occasional alcohol does not use any recreational drugs Medications: Losartan, oxycodone and Advil Allergies: None Physical exam: Able to stand and walk with a slightly flexed posture, strength is normal, reflexes diminished on the left patella. Imaging review: Lumbar MRI done here at [place] shows grade 1 spondylolisthesis at L4-5 with significant facet overgrowth with moderate to severe stenosis. Radiology report also suggests there is signs of muscular strain on the right side. There other degenerative findings in the lumbar spine but not as significant as L4-5. Impression: 69-year-old male presents for evaluation of left-sided low back pain with bilateral lower extremity pain radiating into his hamstrings with standing walking and gets better when he sits. It does not completely go away when he sits down unless he flexes his posture forward. He is okay lying down. He has been taking a combination cocktail of Advil and oxycodone to help him get through his days. It gives him a few hours of relief. His MRI clearly shows that he has got significant findings at L4-5 as outlined above that could explain his pain. He is reluctant to consider back surgery at this point and that is certainly reasonable, however think at some point he is going to end up with surgery. He has the spondylolisthesis and we need to get a set of standing flexion-extension x-rays which we will do in the office here today. If that shows signs of instability, then most likely Dr. Foote would choose to do an oblique lumbar interbody fusion. If not, he may consider a simple decompression on him. The patient would like to try the physical therapy that you referred h im to at the [facility]. He may consider an injection or 2, but I told him not to drag this process out too long if the other conservative things are not working as he has a very nice explanation for his symptoms. He will come back to see me in 6 weeks. I will review his imaging with Dr. Foote. Thank you for allowing us to care for your patient. The total time spent with this visit with this patient was 45 minutes reviewing history, physical exam, lumbar imaging review, and implementation of treatment plan or further diagnostic testing Geovanni Foote MD,PhD [facility] Orders: Orders XR lumbar spine 4V min Today M54.16 - Radiculopathy, lumbar region Coding Level of Care Code New Pt Level 4 (48201) Diagnoses Lumbar radiculopathy M54.16
== END 2024-11-14 11:05 | disposition home or self-care (01) ==
LOC: HO.HNS 09:36
PROVIDERS: PCP Internal Medicine; Referring Provider Internal Medicine; Visit Provider Physician Assistant
DX: M54.16 Radiculopathy, lumbar region (principal)
CPT/HCPCS: 99204

== ENCOUNTER → 2024-11-14 11:04 | Outpatient (BNV) | payer BC, SELFPAY | PROVIDERS: PCP Internal Medicine; Referring Provider Internal Medicine; Visit Provider Radiology Diagnostic Radiology | DX: M47.815 Spondylosis without myelopathy or radiculopathy, thoracolumbar region (principal); M41.86 Other forms of scoliosis, lumbar region | CPT/HCPCS: 72110 ==

== ENCOUNTER 2025-04-16 08:08 | Outpatient (REF) | payer BC, SELFPAY ==
--- OUTSIDE RECORDS SUMMARY | 2025-04-16 08:34 | XMS_ITS | Encounter Summary ---
Author Organization [facility] Address [address] [facility] [address] [place] [address] Phone Care Team Providers Care Nurse Chemical Dependency Name Role Phone Natalia Martinez MD Primary Care Provider [phone] Kelsey Rueda MD Primary Care Provider [phone] Self-Referred, Patient Unavailable Unavailab Judi Mott MD Unavailable [phone] Cain Goddard MD Unavailable [phone] Riki Wells MD Unavailable Richie Jackson MD Primary Care Provider Encounter Details Date Type Department Care Team (Late Contact Info) Description 09/12/2022 Ancillary Orders [facility], X-Ray - [address] [address] Charles Estrada MD [address] [place] [address] [email or web address] Rotator cuff strain, left, initial encounter Social History Tobacco Use Types Packs/Day Years Used Date Smoking Tobacco: Never Assessed Sex and Gender Information Value Date Recorded Sex Assigned at Not on file Legal Sex Male 7:38 PM EST Gender Identity Not on file Sexual Orientation Not on file documented as of this encounter Plan of Treatment Upcoming Encounters Date Type Department Care Team (Late Contact Info) Description 05/07/2025 2:30 PM EST Telemedicine [facility] Urology [address] [facility] [address] [place] [address] Cain Goddard MD 45 [facility] [address] [place] [address] [email or web address] documented as of this encounter Results * XR SHOULDER 2 VIEWS (LEFT) (09/12/2022 3:32 PM EDT) Anatomical Region Laterality Modality Shoulder Left Computed Radiogr aphy 09/13/2022 12:3 2 PM EDT Impressions 09/13/2022 12:34 PM EDT Acromioclavicular spurring which could contribute to rotator cuff impingement. No other significant bony abnormality apparent. Narrative 09/13/2022 12:34 PM EDT XR SHOULDER 2 OR MORE VIEWS (LEFT) COMPARISON: None FINDINGS: Multiple views disclose no fracture, subluxation, or other acute bony abnormality. Glenohumeral joint preserved in width. Humeral head articular surface is smooth. There is mild hypertrophic spurring along the caudal margin of the acromioclavicular compartment. Visualized left ribs are intact and upper lung field grossly clear. Surgical clips are noted in the axillary region. Procedure Note Raul Alvarado MD - 09/13/2022 XR SHOULDER 2 OR MORE VIEWS (LEFT) COMPARISON: None FINDINGS: Multiple views disclose no fracture, subluxation, or other acute bonyabnormality. Glenohumeral joint preserved in width. Humeral head articularsurface is smooth. There is mild hypertrophic spurring along the caudalmargin of the acromioclavicular compartment. Visualized left ribs areintact and upper lung field grossly clear. Surgical clips are noted in theaxillary region. IMPRESSION: Acromioclavicular spurring which could contribute to rotator cuffimpingement. No other significant bony abnormality apparent. us Charles Estrada MD IMG XR UPPER EXTREMITY Final Result documented in this encounter Visit Diagnoses Diagnosis Rotator cuff strain, left, initial encounter Rotator cuff strain, left, initial encounter documented in this encounter Care Teams Nurse Chemical Dependency Relationship Specialty Start Date End Date Natalia Martinez MD PCP - General Internal Medicine 01/03/18 11/04/23 Kelsey Rueda MD [address] [place] [id number] PCP - General Internal Medicine 11/05/23 01/15/24 Richie Jackson MD [address] [place] [address] PCP - General Family Medicine 01/16/24 Self-Referred, Patient 11/05/23 Judi Shepard MD [address] [place] [address] [email or web address] 11/06/23 01/15/24 Cain Goddard MD [address] [place] [address] [email or web address] 11/06/23 Riki Wells MD [address] [place] [phone] [email or web address] Oncology 11/06/23 documented as of this encounter Additional Source Comments The information contained in this document represents components of the legal health record. It is not the complete legal health record.[facility]
--- OUTSIDE RECORDS SUMMARY | 2025-04-16 08:34 | XMS_ITS | Encounter Summary ---
Author Organization [facility] Address [address] [address] Phone Care Team Providers Care Control Specialist Name Role Phone Natalia Martinez MD Primary Care Provider Kelsey Rueda MD Primary Care Provider [phone] Self-Referred, Patient Unavailable Unavailab Judi Mott MD Unavailable [phone] Cain Goddard MD Unavailable [phone] Riki Wells MD Unavailable Richie Jackson MD Primary Care Provider Encounter Details Date Type Department Care Team (Latest Contact Info) Description 01/03/2018 Transcribe Orders [facility] Lorna [address] [facility] 2nd [place] [address] Jony Garrido MD [facility], [address] [place] [address] [email or web address] Asymptomatic microscopic hematuria (Primary Dx) Social History Tobacco Use Types Packs/Day Years Used Date Smoking Tobacco: Never Assessed Sex and Gender Information Value Date Recorded Sex Assigned at Not on file Legal Sex Male 7:38 PM EST Gender Identity Not on file Sexual Orientation Not on file documented as of this encounter Plan of Treatment Upcoming Encounters Date Type Department Care Team (Late st Contact Info) Description 05/07/2025 2:30 PM EST Telemedicine [facility] Urology [address] [facility] [address] [place] [address] Cain Goddard MD 45 [facility]. [facility] [address] [place] [address] [email or web address]. DU documented as of this encounter Results * (ABNORMAL) Basic metabolic panel (01/03/2018 2:49 PM EDT) SODIUM 139 133 - 146 mmol/L [facility] CHLORIDE 100 96 - 108 mmol/L [facility] POTASSIUM 4.7 3.3 - 5.1 mmol/L [facility] CO2 27 21 - 35 mmol/L [facility] BUN 20(H) 6 - 19 mg/dL [facility] CREATININE 1.10 0.5 - 1.5 mg/dL [facility] GLUCOSE 94 70 - 99 mg/dL [facility] CALCIUM 9.5 8.4 - 10.3 mg/dL [facility] EGFR 72 >59 mL/min/1.7 3m2 [facility] Comment:If patient is black, multiply result by 1.159. Estimated glomerular filtration rate calculated using the CKD-EPI equation. ANION GAP 17 10 - 20 mmol/L [facility] Blood 01/03/2018 2:49 PM EDT 01/03/2018 2:53 PM EDT us Jony Garrido MD LAB BLOOD BKR ORDERABLES Final Result Performing Organization Address City/State/[facility] Co de Phone Number [address] [phone] documented in this encounter Visit Diagnoses Diagnosis Asymptomatic microscopic hematuria- Primary documented in this encounter Care Teams Control Specialist Relationship Specialty Start Date End Date Natalia Martinez MD PCP - General Internal Medicine 01/03/18 11/04/23 Kelsey Rueda MD [address] [place] [address] PCP - General Internal Medicine 11/05/23 01/15/24 Richie Jackson MD [address] [place] [address] PCP - General Family Medicine 01/16/24 Self-Referred, Patient 11/05/23 Judi Shepard MD [address] [place] [phone] [email or web address] 11/06/23 01/15/24 Cain Goddard MD [address] [place] [phone] [email or web address] Urology 11/06/23 Riki Wells MD [address] [place] [phone] [email or web address] Radiation Oncology 11/06/23 documented as of this encounter Additional Source Comments The information contained in this document represents components of the legal health record. It is not the complete legal health record.[facility]
--- OUTSIDE RECORDS SUMMARY | 2025-04-16 08:34 | XMS_ITS | Encounter Summary ---
Author Organization [facility] Address [address] [facility] [address] [place] [address] Phone Care Team Providers Care Blade Aligner Name Role Phone Natalia Martinez MD Primary Care Provider [phone] Kelsey Rueda MD Primary Care Provider [phone] Self-Referred, Patient Unavailable Unavailab Judi Mott MD Unavailable [phone] Cain Goddard MD Unavailable [phone] Riki Wells MD Unavailable Richie Jackson MD Primary Care Provider Encounter Details Date Type Department Care Team (Late st Contact Info) Description 05/09/2022 Ancillary Orders [facility], X-Ray - [address] [address] Charles Estrada MD [address] [place] [address] Cervicalgia Social History Tobacco Use Types Packs/Day Years [...] Info) Description 05/07/2025 2:30 PM EST Telemedicine [facility] Urology [address] [place], [place] [address] [place] [address] Cain Goddard MD [address] [facility]. [facility] [address] [place] [address] [email or web address] documented as of this encounter Results * XR CERVICAL SPINE 4-5 VIEWS (05/09/2022 2:01 PM EST) Anatomical Region Laterality Modality C-spine Computed Radiogr aphy 05/09/2022 5:45 PM EST Impressions 05/09/2022 5:46 PM EST Moderate multilevel degenerative change in the cervical spine, most notable at C5-6. Narrative 05/09/2022 5:46 PM EST XR CERVICAL SPINE 4-5 VIEWS COMPARISON: None. FINDINGS: Retrolisthesis of C5 on C6. Vertebral body heights are maintained. Moderate degenerative disc disease at C5-C6. Moderate facet arthropathy at C7-T1. Prevertebral soft tissues are normal in thickness. Limited oblique views without severe osseous neural foraminal narrowing. Vascular calcifications in the right neck. Partially visualized lung apices appear clear. The open-mouth view reveals normal alignment of the C1 lateral masses on C2, however, the tip of the dens is not well assessed due to superimposition. Procedure Note Werner De Oliveira MD - 05/09/2022 XR CERVICAL SPINE 4-5 VIEWS COMPARISON: None. FINDINGS: Retrolisthesis of C5 on C6. Vertebral body heights are maintained.Moderate degenerative disc disease at C5-C6. Moderate facet arthropathy atC7-T1. Prevertebral soft tissues are normal in thickness. Limited obliqueviews without severe osseous neural foraminal narrowing. Vascularcalcifications in the right neck. Partially visualized lung apices appearclear. The open-mouth view reveals normal alignment of the C1 lateralmasses on C2, however, the tip of the dens is not well assessed due tosuperimposition. IMPRESSION: Moderate multilevel degenerative change in the cervical spine, mostnotable at C5-6. Charles Estrada MD IMG XR SPINE Final Result documented in this encounter Visit Diagnoses Diagnosis Cervicalgia Cervicalgia documented in this encounter Care Teams Blade Aligner Relationship Specialty Start Date End Date Natalia Martinez MD PCP - General Internal Medicine 01/03/18 11/04/23 Kelsey Rueda MD [address] [place] [address] PCP - General Internal Medicine 11/05/23 01/15/24 Richie Jackson MD [address] [place] [address] PCP - General Family Medicine 01/16/24 Self-Referred, Patient 11/05/23 Judi Shepard MD [address] [place] [phone] [email or web address] Medical Oncology 11/06/23 01/15/24 Cain Goddard MD [address] [place] [phone] [email or web address] [email or web address] 11/06/23 Riki Wells MD [address] [place] [phone] [email or web address] Radiation Oncology 11/06/23 documented as of this encounter Additional Source Comments The information contained in this document represents components of the legal health record. It is not the complete legal health record.[facility]
--- OUTSIDE RECORDS SUMMARY | 2025-04-16 08:34 | XMS_ITS | Encounter Summary ---
Author Organization [facility] Address [address] [address] Phone Care Team Providers Care [employer] Professor Name Role Phone Natalia Martinez MD Primary Care Provider Kelsey Rueda MD Primary Care Provider [phone] Self-Referred, Patient Unavailable Unavailab Judi Mott MD Unavailable [phone] Cain Goddard MD Unavailable Riki Wells MD Unavailable Richie Jackson MD Primary Care Provider Reason for Referral * MRI/CAT Scan - Closed Specialty Diagnoses / Procedures Referred By Sy lopez Referred To Contact Radiology Diagnoses Asymptomatic microscopic hematuria Procedures CT Abdomen/Pelvis Jony Garrido MD Phone: tel: fax: [email or web address] Referral ID Status Reason Start Date Expiration Date Visits Re quested Visits Authorized [id number] Closed 01/03/2018 03/03/2018 1 1 Encounter Details Date Type Department Care Team (Latest Contact Info) Description 01/08/2018 Ancillary Orders [facility] Department [address] [place] [id number] Jony Garrido MD [address] [place] [address], [place] [address] [email or web address] Asymptomatic microscopic hematuria Social History Tobacco Use Types Packs/Day Years [...] Info) Description 05/07/2025 2:30 PM EST Telemedicine [facility] Urology [address] [facility] [address] [place] [address] Cain Goddard MD [address] [facility] [address] [place] [address] [email or web address] documented as of this encounter Results * CT ABDOMEN/PELVIS WITH AND WITHOUT CONTRAST (01/18/2018 11:03 AM EDT) Anatomical Region Laterality Modality Abdomen, Pelvis Computed Tomogra phy 01/18/2018 11:0 5 AM EDT Impressions 01/18/2018 11:11 AM EDT 2 mm corticomedullary junction right renal calculus without hydronephrosis or other calculi seen. No renal parenchymal mass lesion or intraluminal filling defects are noted at present. Diffuse colonic diverticulosis most prominent in the sigmoid colon without diverticulitis. TOTAL CTDIvol: 23.00 mGy S/S: Microscopic hematuria, painless microscopic hematuria, history of melanoma POS -[id number] Narrative 01/18/2018 11:11 AM EDT COMPARISON: None TECHNIQUE: Water is used as an oral contrast agent. Pre-contrast views are obtained from the kidneys through the inferior pubic rami. Intravenous contrast is then administered and scanning obtained at ninety seconds from the dome of the liver to the iliac crests. Delayed scanning is then obtained from above the kidneys through the inferior pubic rami during excretory phase. Automated exposure control utilized. FINDINGS: The lung bases are clear. No significant nodularity or pleural fluid is seen. The liver is relatively homogeneous without focal findings of concern seen. No bile duct dilatation is noted. The spleen is unremarkable. The pancreas appears normal. No adrenal masses are seen. There is a 2 mm calculus evident at the corticomedullary junction of the inferior right kidney. No other nephrolithiasis is seen. No hydronephrosis or significant renal parenchymal mass lesion is noted. No upper urinary tract filling defects are noted. The ureters are normal course and caliber. Urinary bladder is unremarkable. There are calcifications in the prostate gland evident. No periaortic or significant pelvic lymphadenopathy is noted. There is prominent sigmoid diverticulosis without diverticulitis confirmed. Scattered diverticula evident in the left colon, transverse colon, right colon as well. The appendix appears normal. The terminal ileum is unremarkable. There are [id number] degenerative changes in the thoracolumbar spine. Procedure Note Jone Connelly MD - 01/18/2018 COMPARISON: None TECHNIQUE: Water is used as an oral contrast agent. Pre-contrast viewsare obtained from the kidneys through the inferior pubic rami.Intravenous contrast is then administered and scanning obtained at ninetyseconds from the dome of the liver to the iliac crests. Delayed scanningis then obtained from above the kidneys through the inferior pubic ramiduring excretory phase. Automated exposure control utilized. FINDINGS: The lung bases are clear. No significant nodularity or pleural fluid isseen. The liver is relatively homogeneous without focal findings of concernseen. No bile duct dilatation is noted. The spleen is unremarkable. The pancreas appears normal. No adrenal masses are seen. There is a 2 mm calculus evident at the corticomedullary junction of theinferior right kidney. No other nephrolithiasis is seen. No hydronephrosisor significant renal parenchymal mass lesion is noted. No upper urinarytract filling defects are noted. The ureters are normal course andcaliber. Urinary bladder is unremarkable. There are calcifications in theprostate gland evident. No periaortic or significant pelvic lymphadenopathy is noted. There is prominent sigmoid diverticulosis without diverticulitisconfirmed. Scattered diverticula evident in the left colon, transversecolon, right colon as well. The appendix appears normal. The terminalileum is unremarkable. There are [id number] degenerative changes in the thoracolumbarspine. IMPRESSION: 2 mm corticomedullary junction right renal calculus without hydronephrosisor other calculi seen. No renal parenchymal mass lesion or intraluminalfilling defects are noted at present. Diffuse colonic diverticulosis most prominent in the sigmoid colon withoutdiverticulitis. TOTAL CTDIvol: 23.00 mGy S/S: Microscopic hematuria, painless microscopic hematuria, history ofmelanoma POS -[id number] us Jony Garrido MD IMG CT ABD/PELVIS Final Result documented in this encounter Visit Diagnoses Diagnosis Asymptomatic microscopic hematuria Asymptomatic microscopic hematuria documented in this encounter Care Teams [employer] Professor Relationship Specialty Start Date End Date Natalia Martinez MD PCP - General Internal Medicine 01/03/18 11/04/23 Kelsey Rueda MD [address] [place] [id number] PCP - General Internal Medicine 11/05/23 01/15/24 Richie Jackson MD [address] [place] [id number] PCP - General Family Medicine 01/16/24 Self-Referred, Patient 11/05/23 Judi Shepard MD [address] [place] [id number] [email or web address] 11/06/23 01/15/24 Cain Goddard MD [address] [place] [id number] [email or web address] Urology 11/06/23 Riki Wells MD [address] [place] [id number] [email or web address] 11/06/23 documented as of this encounter Additional Source Comments The information contained in this document represents components of the legal health record. It is not the complete legal health record.[facility]
--- OUTSIDE RECORDS SUMMARY | 2025-04-16 08:34 | XMS_ITS | Clinical Summary ---
Author Organization [facility] Address [address] [facility] [address] [place] [phone] Phone Care Team Providers Care Director Long Term Care Name Role Phone Self-Referred, Patient Unavailable Unavailab Cain Concepcion MD Unavailable [phone] Riki Wells MD Unavailable Richie Jackson MD Primary Care Provider Allergies No known active allergies Medications losartan (COZAAR) 25 MG tablet Take 25 mg by mouth every morning. 4 Active tadalafiL (CIALIS) 20 MG tablet Take 1 tablet (20 mg total) by mouth 2 (two) times a week. Take twice per week (ex Sunday and Sunday) for sexual rehabilitation 24 tablet 3 5 Active Active Problems Problem Noted Date Diagnosed Date Prostate cancer 01/23/2024 Murmur 08/17/2017 History of malignant melanoma 03/30/2014 Overview (12/12/2023): Left posterior shoulder, 2.7mm; righ chest, 0.25 mm; left ear, MIS Hyperlipidemia 01/08/2012 Cervical disc syndrome 2009 Overview (12/12/2023): Herniated C6 - C7 Diverticulitis of colon without hemorrhage 11/29 Overview (12/12/2023): by colonoscopy 12/01 with polyp Esophageal reflux 10/15/2006 RBBB 05/02/2006 Overview (12/12/2023): [facility] EKG Encounters Date Type Department Care Team Description 01/22/2025 1:21 PM EDT - 01/22/2025 11:59 PM EDT Hospital Encounter [facility], [facility] [address] [place] [address] Discharge Disposition: Home or Self Care 01/22/2025 Orders Only [facility], [facility] [address] [facility] [place] [address] Shaun Shetty MD Prostate cancer (Primary Dx) from Last 3 Months Immunizations Immunization Administration Dates Next Due COVID-19 (Pre-03/19) Pfizer Vaccine, mRNA, PF ,08/21/2020 Family History Medical History Relation Comments Prostate cancer Neg Hx Social History Tobacco Use Types Packs/Day Years Used Date Smoking Tobacco: Some Days Cigarettes Smokeless Tobacco: Never Tobacco Cessation:Ready to Q uit: Not Asked; Counseling Given: Not Answered Alcohol Use Standard Drinks/Week Comments Yes 0 (1 standard drink = 0.6 oz pur e alcohol) 7-14 drinks per week Child or Family Care Answer Date Record ed Do you have problems with on e of the following making it difficult for you to work, study, or receive health care? No 12/06/2023 Education Answer Date Recorded Are you interested in more education? Not on alli e 2022 Are you concerned about learning? Not on file 2022 No 2022 No 2022 Food Answer Date Recorded Within the past 6 months we worried whether our food would run out before we got money to buy more. Never True 12/06/2023 Within the past 6 months the food we bought just didn't last and we didn't have enough money to get more. Never True Residential Stability Answer Date Recor ded What is your housing situation today? I have tasia cagle 12/06/2023 How many times have you move d in the past 12 months? Zero (I did not move) 12/06/2023 Paying for Meds Answer Date Recorded Do you have trouble paying for medicines? No 12/06/2023 Paying Utility Bills Answer Date Record ed Do you have trouble paying your heating or elect ricity bill? No 12/06/2023 Transportation Answer Date Recorded Has the lack of transportati on kept you from medical appointments or from getting medications? No 12/06/2023 Digital Access Answer Date Recorded No 10/23/2022 No 10/23/2022 Reliable internet access at home? Not on file 10/23/2022 Device with a working camera? Not on file Intimate Partner Violence Answer Date R ecorded Are you denied basic needs s uch as food, clothing, or medical care? No 01/16/2024 In the past 12 months have y ou been in a relationship with a person who hurts, threatens, or tries to control you? No 01/16/2024 Are you denied basic needs s uch as food, clothing, or medical care? No 01/16/2024 In the past 12 months have y ou been in a relationship with a person who hurts, threatens, or tries to control you? No 01/16/2024 Sex and Gender Information Value Date Recorded Sex Assigned at Not on file Legal Sex Male 7:38 PM EST Gender Identity Not on file Sexual Orientation Not on file Last Filed Vital Signs Vital Sign Reading Time Taken Comments Blood Pressure 165/80 01/30/2024 9:25 AM EDT Pulse 84 01/30/2024 9:25 AM EDT Temperature 36.2 C (97.2 F) 01/30/2024 9:25 AM EDT Respiratory Rate 16 01/24/2024 3:09 AM EDT Oxygen Saturation 96% 01/30/2024 9:25 AM EDT Inhaled Oxygen Concentration - - Weight 91.6 kg (202 lb) 01/16/2024 10:18 AM EDT Height 175.3 cm (5' 9 ) 01/16/2024 10:18 AM EDT Body Mass Index 29.83 01/16/2024 10:18 AM EDT Plan of Treatment Upcoming Encounters Date Type Department Care Team (Late st Contact Info) Description 05/07/2025 2:30 PM EST Telemedicine [facility] Urology [address] [facility] [address] [place] [address] Cain Goddard MD [address] [facility] [facility] [address] [place] [address] [email or web address] Maintenance Due Date Last Done Comments DEPRESSION SCREENING 1968 SMOKING Hx and SMOKELESS TOBACCO SCREENING 1969 HEPATITIS C SCREENING 1974 COLOGUARD 2001 COLONOSCOPY 2001 COLORECTAL CANCER SCREENING 2001 FIT TEST 2001 FOBT 2001 SIGMOIDOSCOPY 2001 VIRTUAL COLONOSCOPY 2001 ZOSTER VACCINES (1 of 2) 06/01/2017 04/06/2017 ABDOMINAL AORTIC ANEURYSM (AAA) SCREENING 2021 01/18/2018 INFLUENZA VACCINE (#1) 2024 , 05/06/2019, 04/13/2018, Additional history exists CREATININE LEVEL 01/22/2025 01/23/2024, , 12/12/2023, Additional history exists POTASSIUM LEVEL 01/22/2025 01/23/2024, 12/26, 12/12/2023, Additional history exists COVID-19 VACCINE ( season) 2025 06/11/2021, 09/11/2020, 08/21/2020 LIPID PANEL 04/01/2026 04/01/2021, 01/27, 05/06/2019 SCREENING FOR DIABETES 01/13/2027 01/14/2024 RSV VACCINE (1 - 1-dose 75+ series) 09/22/2031 Adult Td,Tdap Booster 12/24/2033 12/25/2023 , 06/26/2011, 08/01/2005 PNEUMOCOCCAL VACCINES (50+ years) Completed 04/15/2024 HEPATITIS A VACCINES Aged Out No long er eligible based on patient's age to complete this topic HIB VACCINES Aged Out No longer eligi ble based on patient's age to complete this topic IPV VACCINES Aged Out No longer eligi ble based on patient's age to complete this topic MENINGOCOCCAL VACCINES (ACWY) Aged Out No longer eligible based on patient's age to complete this topic MENINGOCOCCAL VACCINES (B) Aged Out N o longer eligible based on patient's age to complete this topic Medical Devices Not on file Procedures Procedure Name Priority Date/Time Associated Diagnosis Comments ONCOPANEL Routine 01/22/2025 1:21 PM EDT Prostate cancer PROFILE SOMATIC ONCOPANEL Routine 01/22/2025 12:00 AM EDT BASIC METABOLIC PANEL (BMP) STAT 01/23/2024 1:[address] ABDOMEN/PELVIS WITH AND WITHOUT CONTRAST Routine 01/18/2018 11:03 AM EDT Asymptomatic microscopic hematuria from Last 3 Months or Most Recently Relevant to Health Maintenance Results * Oncopanel (01/22/2025 1:21 PM EDT) Specimen Status Request received [facility] Report Status SEE PATHOLOGY REPORT [facility] Other 01/22/2025 1:21 PM EDT 01/22/2025 1:25 PM EDT Shaun Shetty MD NON SCHEDULABLE PATHOLOGY Fi nal Result Performing Organization Address City/State/[facility] Co de Phone Number [facility] [address] [place] [phone] * Profile Somatic Oncopanel (01/22/2025 12:00 AM EDT) Results Test Description - [employer] Version 3.1 PASS There are [id number] aligned, high-quality reads for this tumor specimen with a mean of 319 reads across all targeted exons and 98% of all exons having more than 30 reads. Mutational Happy Jack: Tumor Mutational Happy Jack/Megabase: 7.604 This is higher than 84% of all Prostate Cancer cases sequenced by this version of OncoPanel. This is higher than 68% of all Profile cases sequenced by this version of OncoPanel. ACTIONABLE FINDINGS Mismatch Repair Status: Proficient (MMR-P / JHONNY) Mutations: Tier 1 variants: None identified. Tier 2 variants: None identified. Structural Variants: Tier 1 variants: None identified. Tier 2 variants: None identified. Copy Number Variants: No actionable copy number variants identified. ADDITIONAL FINDINGS: Investigational Mutational Signatures (see methods): Too few mutations detected to perform additional mutational signature analysis. Investigational Variants Mutations: Tier 3 variants: MBD4 c.1688T>A (p.L563*), exon 8 - in 45% of 451 reads## TP53 c.472C>T (p.R158C), exon 5 - in 2% of 315 reads## Tier 4 variants: COL7A1 c.1324C>T (p.R442C), exon 10 - in 43% of 367 reads### DIS3 c.1457T>C (p.I486T), exon 10 - in 51% of 480 reads### ETV4 c.154+4A>G () - in 47% of 101 reads### KMT2D c.01585J>A (p.H0615P), exon 51 - in 17% of 487 reads### KMT2D c.07311X>C (p.M8802Y), exon 51 - in 17% of 458 reads### MTOR c.5930C>T (p.W2222J), exon 43 - in 3% of 338 reads### NEIL2 c.143A>G (p.H48R), exon 4 - in 48% of 167 reads### SF3B1 c.1874G>A (p.R625H), exon 14 - in 5% of 422 reads### SF3B1 c.2651T>C (p.I884T), exon 18 - in 43% of 437 reads### Structural Variants: Tier 3 variants: None identified. Tier 4 variants: None identified. Copy Number Variants: Cytoband/Size Type of Alteration Genes 17q21.32 Gain HOXB13 21q22.3 Gain TMPRSS2 [facility] Results\Inte rpretation DNA VARIANTS MBD4 c.1688T>A (p.L563*) - ##MBD4 is a methyl-CpG binding domain containing protein which participates in base excision repair. MBD4 is also known to interact with MLH1 and may aid in adjusting MMR protein levels (PMID: 31691459). MBD4 mutations are frequently found in hereditary and sporadic colon cancer cases with defective MMR and MSI (PMID: 40285300, [id number]). However, the association of this gene with prostate cancer is unclear. This variant has not been reported in ClinVar, population or cancer databases. The functional significance of this nonsense variant is uncertain as it is located in the last exon of the gene. This assay cannot distinguish between germline and somatic variants. Clinical correlation is recommended. TP53 c.472C>T (p.R158C) - ##TP53 is a tumor suppressor gene that is recurrently mutated in a broad variety of cancer types, including prostate adenocarcinoma (PMID: 77263295).This variant, TP53 p.R158C, occurs at a mutational hotspot (COSMIC). ### These variants may have a role in cancer biology, or may have shown potential future clinical application in in vitro studies, but as yet no clinical role for this mutation has been established as [id number] in the published medical literature. STRUCTURAL VARIANTS: No structural variants were detected in any of the genes tested. Note that many structural rearrangements are associated with DNA changes in introns, and the ability of this test to detect these rearrangements is limited to selected portions of selected introns of only 60 genes (see list below). Therefore, the absence of a rearrangement by this method is not a definitive result, and requires confirmation by an alternative method (e.g., FISH or karyotype) in the appropriate clinicopathologic context. COPY NUMBER VARIANTS (CNV): CNV analysis shows few alterations. TEST INFORMATION: This test has been validated and performed in a clinical laboratory that is certified by CLIA (CLIA certificate: [id number]), under CLIA guidelines for clinical testing. This test was developed, and its performance characteristics determined by the [facility], [facility]. It has not been cleared or approved by the U.S. Food and Drug Administration. The FDA has determined that such clearance or approval is not necessary. For detailed methodology and protocol, please contact the [facility] ([phone]). LABORATORY METHODS: OncoPanel is a cancer genomic assay designed to detect somatic mutations, copy number variations and structural variants in tumor DNA extracted from fresh, frozen or formalin-fixed paraffin-embedded samples. This assay surveys exonic DNA sequences of 447 cancer genes and 191 regions across 60 genes for rearrangement detection. DNA is isolated from tissue containing at least 20% tumor nuclei and analyzed by massively parallel sequencing using a solution-phase [employer] SureSelect hybrid capture kit and an Illumina CloudAccess 6000 sequencer. This assay may be performed with tumor only, in which setting likely somatic variants are prioritized for review and interpretation and most germline variants are removed bioinformatically, but a subset of germline variants occurring with the full panel of targeted genes may be included in the report. This assay may also be performed as a Paired Tumor: Germline test, in which case genomic DNA extracted from the patient's blood specimen is sequenced in parallel with the tumor specimen and germline variants detected in the blood specimen are generally excluded from the somatic report. However, germline variants with potential therapeutic importance are reported in the somatic report when they occur in the following genes: ALK, GONZALO, BARD1, BRCA1, BRCA2, CHEK2, DICER1, EGFR, KIT, MET, MLH1, MSH2, MSH6, PALB2, PMS2, PTCH1, RB1, RET, TP53 The complete list of 447 genes is as follows: ABCB11,ABL1,ACVR1,AKT1 ,AKT2,AKT3,ALK,APC,AR, ARAF,BXJGKS17,RFVDVK87 ,ARID1A,ARID1 B,ARID2,ASXL1,GONZALO,ATR, ATRX,AURKA,AURKB,AXIN2 ,REBECA,B2M,BABAM1,BAP1,B ARD1,BCL11B,B CL2,BCL2L1,YWY8M69,BCL 6,BCOR,BCORL1,BLM,BMPR 1A,BRAF,BRCA1,BRCA2,BR CC3,BRD3,BRD4 ,LIBERTAD,BRIP1,BUB1B,C17OR F70,X89WVM69,A1XEG28,C ALR,CARD11,CASP8,CBFA2 T3,CBFB,CBL,C BLB,CCND1,CCND2,CCND3, CCNE1,CD274,CD79B,CDC7 3,CDH1,CDH4,CDK12,CDK4 ,CDK6,CDK8,CD KN1A,CDKN1B,CDKN1C,CDK N2A,CDKN2B,CDKN2C,CEBP A,CHEK1,CHEK2,CIC,CIIT A,COL7A1,CREB BP,CRKL,CRLF2,CRTC1,CS F3R,CTCF,CTLA4,CTNNA1, CTNNB1,CUX1,CXCR4,CYLD ,DAXX,NZFQS8N ,DDB1,DDB2,DDR2,DICER1 ,DIS3,DIS3L2,DKC1,DMC1 ,DNMT3A,DOCK8,EGFR,EGL N1,ELANE,EME1 ,ENG,EP300,EPCAM,ERBB2 ,ERBB3,ERBB4,ERCC1,ERC C2,ERCC3,ERCC4,ERCC5,E RCC6,ERG,ESR1 ,ETV1,ETV4,ETV5,ETV6,E WSR1,EXO1,EXT1,EXT2,EZ H2,FAH,WPF491O,FAM46C, FAN1,FANCA,FA NCB,FANCC,FANCD2,FANCE ,FANCF,FANCG,FANCI,FAN CL,FANCM,FAS,FAT1,FBXW 7,FGFR1,FGFR2 ,FGFR3,FGFR4,FH,FLCN,F LT1,FLT3,FLT4,FOXA1,FO XL2,FUS,GALNT12,GATA2, GATA3,GATA4,G ATA6,GBA,GEN1,GLI1,GLI 2,GNA11,GNAQ,GNAS,GPC3 ,GREM1,H19,H3F3A,H3F3B ,HABP2,HELQ,H FE,TGPY2C9Q,GIGA2M7I,H MBS,HNF1A,HOXB13,HRAS, ID3,ID4,IDH1,IDH2,IGF1 R,IGF2,IKZF1, IL7R,ITK,JAK1,JAK2,LUISA 3,JAZF1,KAT6A,KAT6B,RU NQ1,KDM5A,KDM5C,KDM6A, KDR,KEAP1,KIF 1B,KIT,KLF2,KLF4,KLLN, KMT2A,KMT2D,KRAS,LIG4, LMO1,LMO2,MAF,MAFB,MAP 2K1,MAP2K2,MA P2K4,MAP3K1,MAPK1,MAX, MBD4,MCL1,MCM8,MDM2,MD M4,MECOM,MED12,MEF2B,M EN1,MET,MGA,M ITF,MLH1,MLH3,MPL,MRE1 1A,MSH2,MSH6,MTA1,MTAP ,MTOR,MUS81,MUTYH,MYB, MYBL1,MYC,MYC L1,MYCN,MYD88,NBN,DANA 1,NEIL2,NEIL3,NF1,NF2, NFE2L2,NFKBIA,NFKBIE,N FKBIZ,NKX2-1, NKX3-1,NOTCH1,NOTCH2,N OTCH3,NPM1,NR0B1,NRAS, NRG1,NSD1,NT5C2,NTHL1, NTRK1,NTRK2,N TRK3,OGG1,PALB2,PARK2, PAX5,PAXIP1,PBRM1,PDCD 1LG2,PDGFRA,PDGFRB,PHF 6,PHOX2B,PIK3 C2B,PIK3CA,PIK3R1,PIM1 ,PML,PMS1,PMS2,PNKP,PO LB,POLD1,POLE,POLH,CAROLINE Q,POT1,PPARG, PPM1D,RRA4K4L,PRDM1,AK F1,PELDF8S,PRKCI,PRKDC ,PRSS1,PTCH1,PTEN,PTK2 B,PTPN11,PTPN 14,PVRL4,QKI,RAC1,RAD2 1,RAD50,RAD51,RAD51C,R AD51D,RAD52,RAD54B,CHEMO 1,MIGUEL,RASA1, RB1,RBBP8,RBM10,RECQL4 ,REL,RELA,RET,RHBDF2,R HEB,RHOA,RHOH,RHOT1,RI CTOR,RIF1,RIN T1,RIT1,RMRP,RNF43,RNF 8,ROS1,RPA1,RPTOR,RSPO 2,RSPO3,RUNX1,YHGY9T9, SBDS,SDHA,SDH AF2,SDHB,SDHC,SDHD,SER PINA1,SETBP1,SETD2,SF3 B1,SH2B3,SH2D1A,SLC25A 13,HPW27E7,SL X1A,SLX1B,SLX4,SMAD2,S MAD4,SMARCA4,SMARCB1,S MARCE1,SMC3,SMO,SOCS1, SOS1,SOX2,SOX 9,SPOP,SRSF2,SRY,SS18, STAG2,STAT3,STAT6,STK1 1,SUFU,SUZ12,TAL1,TAL2 ,DERIK,TCEB1,TC F3,TCF7L2,TDG,TERC,TER T,TET1,TET2,TFE3,TLX3, OYKJ109,TMPRSS2,TNFAIP 3,TOPBP1,TP53 ,JF05NK3,TRAF3,TRAF7,T RIM37,TSC1,TSC2,TSHR,U 2AF1,UBE2T,UIMC1,UROD, USP28,USP8,VE GFA,VHL,WAS,WHSC1,WHSC 1L1,WRN,WT1,XPA,XPC,XP O1,XRCC1,XRCC2,XRCC3,X RCC4,XRCC5,XR CC6,YAP1,VNH839,ZNRF3, ZRSR2 191 regions across the following 60 genes are targeted for rearrangement detection: ABL1,ALK,BCL6,BIRC3,BR AF,CBFB,CIC,CIITA,CRTC 1,CRTC3,EGFR,ERG,ESR1, ETV4,ETV5,ETV 6,EWSR1,FGFR1,FGFR2,FG FR3,FIP1L1,FOXO1,FUS,J AK2,KMT2A,MET,MYB,MYBL 1,NAB2,NCOA2, NPM1,NR4A3,NRG1,NTRK1, NTRK2,NTRK3,NUTM1,NUP2 14,PDGFB,PDGFRA,PDGFRB ,PHF1,PML,PPA RG,RAF1,MIGUEL,RELA,RET, ROS1,RSPO2,RSPO3,RUNX1 ,TJR02T9,SS18,SUZ12,TM PRSS2,TP53,WW TR1,YAP1,YWHAE This test has been performed under an institutional research protocol (17-000/20-000) but has been validated and performed in a clinical laboratory that is certified by CLIA (CLIA certificate: [id number]), under CLIA guidelines for clinical testing. Accordingly, the [facility] Institutional Review Board has authorized the release of these test results, performed under this research protocol, into the patient's electronic medical record, so that they may be used for clinical management decisions, including determining eligibility for clinical trials. INTERPRETIVE METHODS: Somatic genetic alterations in oncogenes and tumor-suppressor genes contribute to the pathogenesis and evolution of human cancers. These alterations can provide diagnostic, prognostic and predictive information and stratify cancers for targeted therapeutic information. We classify these alterations into five tiers using the following guidelines: Tier 1: The alteration has well-established published evidence confirming clinical utility in this tumor type, in at least one of the following contexts: predicting response to treatment with an FDA-approved therapy; strongly supportive in establishing a definitive diagnosis; assessing prognosis; or conferring an inherited increased risk of cancer to this patient and family. Tier 2: The alteration may have clinical utility in at least one of the following contexts: selection of an investigational therapy in clinical trials for this cancer type; limited evidence of prognostic association; supportive of a specific diagnosis; proven association of response to treatment with an FDA-approved therapy in a different type of cancer; or similar to a different mutation with a proven association with response to treatment with an FDA-approved therapy in this type of cancer. Tier 3: The alteration is of uncertain clinical utility, but may have a role as suggested by at least one of the following: demonstration of association with response to treatment in this cancer type in preclinical studies (e.g., in vitro studies or animal models); alteration in a biochemical pathway that has other known, therapeutically-target able alterations; alteration in a highly conserved region of the protein predicted, in silico, to alter protein function; or selection of an investigational therapy for a different cancer type. Tier 4: The alteration is novel or its significance has not been studied in cancer. For tumor-only analysis, a subset of these alterations likely represent normal germline variants as the assay is not analyzed in conjunction with a matched normal from the same patient. Tier 5: The alteration has been determined to have no clinical utility, either for selecting therapy, assessing prognosis, establishing a diagnosis, or determining hereditary disease risk. These variants are not included in the report. Insufficient Coverage: If specified exon(s) have <50X coverage, that gene for that specific exon is considered to have insufficient coverage. Pertinent Negative: Specified exon(s) or codon(s) of interest for the given panel having sufficient coverage and no variants found. Copy Count Estimation: When the estimated number of copies for a CNV call is calculated as >= 6 copies, the report will include the number of copies instead of reporting high or low amplification. The copy estimate is the average number of copies in the sample, rounded to the nearest whole number, and is not adjusted for subclonal events. Importantly, the estimated copy number is a function of the subjective visual assessment of tumor purity(heterogeneity) made by a pathologist. As such, this copy number is an estimate, with an element of error. Copy number variants are called at the gene level; genes that are not on our assay but are present in the cytoband should not have the same copy alteration inferred. The following formula is used for the calculation, where Noc = Number of Copies, AGCR = Average Gene CopyRatio, and P = Tumor Purity:NoC = (2 * (AGCR -1)/P ) + 2) Tumor mutational burden (TMB): TMB is calculated by determining the number of non-synonymous somatic mutations that occur per megabase of exonic sequence data across all genes on the panel. Measurement of TMB may be less precise in tumors with a very low tumor content and can potentially be affected by the presence of rare germline variants that are not removed by population allele frequency-based filtering. The TMB for a case is reported as a percentile in relation to all prior Profile clinical and research cohort samples sequenced on the current version of [employer], as well as a percentile in relation to all tumors of that specific type. A tumor type-specific percentile is not provided for tumor types that have cumulatively been sequenced less than 10 times due to insufficient data for meaningful comparison. Structural Rearrangements: Svaba and Manta tools were used for detection of structural rearrangements/variati ons (SVs). Potential rearrangements and insertions/deletions identified by one or both algorithms in 191 DNA gene regions (across 60 genes) were manually reviewed for inclusion in the report. Detection of SVs in DNA is limited and the absence of a rearrangement should not be taken as absolute. Confirmation of the biological activation of a rearrangement using RNA or protein-based testing can be considered. For indel detection, Svaba/Manta thresholds were set to = 15 nucleotides for somatic samples and = 5 nucleotides for germline samples. Mismatch repair (MMR): MMR pathway status is evaluated by determining the number of small insertion/deletion events that occur in homopolymer regions within exonic sequence data across all genes on the panel, using an extension of a method previously developed in our laboratory (J Mol Diagn. 2017;19(1):84-91). Tumors with an elevated number of such events are classified as mismatch repair deficient (MMR-D) or microsatellite instability - high (MSI-H), while tumors with a low burden of such events are classified as mismatch repair proficient (MMR-P) or microsatellite stable (JHONNY). In some cases, it may not be possible to make a definitive determination about MMR pathway status. This may be due multiple factors, including low tumor content, suboptimal sequence quality, and the presence of another mutational signature. For these indeterminate cases, orthogonal testing via immunohistochemistry for mismatch repair protein expression or microsatellite instability testing by PCR should be considered. In tumor-only testing, for tumors with 16 or more mutations (9 or more in Tumor-Germline Testing), additional mutational signature analysis is performed based upon the pattern of nucleotide substitutions. Mutational signatures that can be detected using this approach include those associated with DNA damage due to ultraviolet light (UVA) exposure, tobacco smoke exposure, prior treatment with alkylating agents (including temozolomide), impaired POLE DNA polymerase function, and APOBEC enzyme dysregulation. The Protein Bar mutational signature detection tool is based upon previously published signatures derived from whole exome sequencing data (Perez et al. Nature 500:415-21 (2013)) and was refined by training on targeted exome sequencing data (Alexander harris al. Nature Medicine 23, 103 7 13 (2017)). The reported mutational patterns reflect those observed in vitro following exposure to relevant mutagens. The presence of these signatures, as detected by the [employer] mutational signature tool, was further validated against clinicopathologic features in 738 OncoPanel samples including (1) origin at a sun-exposed site, (2) smoking history, (3) prior treatment with temozolomide, (4) concurrent POLE hotspot mutation, or (5) MMR deficiency as detected by OncoPanel. Mutational signature sensitivity ranges from 42 to 82% and specificity from 80 to > 99% relative to matched clinical features. However, extensive functional analysis has not been performed for validation and, therefore, these signatures should be interpreted as observed patterns consistent with the appropriate pathologic mechanism, but not definitive assertions. Failure to detect a mutational signature despite a relevant clinical context may result from low numbers of mutations identified by this targeted assay, low tumor content, and/or alternative mechanisms of tumorigenesis. If the reported mechanism is unexpected (i.e., a UV-signature in tumor arising at a visceral site), an appropriate clinical correlate should be identified before initiating a change in management. REFERENCES: Adrien harris al. 2012. High-throughput detection of actionable genomic alterations in clinical tumor samples by targeted, massively parallel sequencing. Cancer Discov. 2(1):82-93. PMID: 44780866 Tammy LE et al., 2016. Institutional implementation of clinical tumor profiling on an unselected cancer population. JCI Insight 2016; 1:e95679. PMID: 17359082 Meghan Jain et al., 2016. Manta: rapid detection of structural variants and indels for germline and cancer sequencing applications. Bioinformatics. 32(8):7735-6016. PMID: 89284307 Raheel GARCIA et al., 2017. Validation of OncoPanel: A Targeted Next-Generation Sequencing Assay for the Detection of Somatic Variants in Cancer. Arch Pathol Lab Med. 141(6):751-758. PMID: 95944295 Jenna BRIAN et al., 2017. Detection of mismatch repair deficiency and microsatellite instability in colorectal adenocarcinoma by targeted next-generation sequencing. J Mol Diag.19:84-91. PMID: 42382432 Sacha BRIAN et al., 2018. SvABA: genome-wide detection of structural variants and indels by local assembly. Genome Res. 28(4):581-591. PMID: 48388441 By his/her signature below, the senior physician certifies that he/she personally reviewed all the laboratory data of the described specimen(s) and rendered or confirmed the diagnosis(es) related thereto. [facility] Procedure Comments ProcOncoPanel - [facility] Lysis of cells prior to extraction (Molecular Dx) - [facility] Microdissection - [facility] Report Accession No: [id number] Date: 1955 Sex: Male [facility] Department of Pathology [address] [place], [place] [address]IA License No.: [id number] Claims Processor: Dr. Reena Munoz Physician: SHAUN SHETTY MD Specimen Submitted: Molecular Procedure Date: 01/22/2025 Pathologist: Avis Hernandez, Ph.D. CLINICAL DATA: Clinical Diagnosis: ==== ONCOPANEL ==== Accession numbers on blocks submitted - [id number] Original Pathologic Diagnosis - PRAD Estimated percentage of neoplastic cells in submitted specimen - 70% RESULT: Test Description - OncoPanel Version 3.1 PASS There are [id number] aligned, high-quality reads for this tumor specimen with a mean of 319 reads across all targeted exons and 98% of all exons having more than 30 reads. Mutational Happy Jack: Tumor Mutational Happy Jack/Megabase: 7.604 This is higher than 84% of all Prostate Cancer cases sequenced by this version of Protein Bar. This is higher than 68% of all Profile cases sequenced by this version of Protein Bar. ACTIONABLE FINDINGS Mismatch Repair Status: Proficient (MMR-P / JHONNY) Mutations: Tier 1 variants: None identified. Tier 2 variants: None identified. Structural Variants: Tier 1 variants: None identified. Tier 2 variants: None identified. Copy Number Variants: No actionable copy number variants identified. ADDITIONAL FINDINGS: Investigational Mutational Signatures (see methods): Too few mutations detected to perform additional mutational signature analysis. Investigational Variants Mutations: Tier 3 variants: MBD4 c.1688T>A (p.L563*), exon 8 - in 45% of 451 reads## TP53 c.472C>T (p.R158C), exon 5 - in 2% of 315 reads## Tier 4 variants: COL7A1 c.1324C>T (p.R442C), exon 10 - in 43% of 367 reads### DIS3 c.1457T>C (p.I486T), exon 10 - in 51% of 480 reads### ETV4 c.154+4A>G () - in 47% of 101 reads### KMT2D c.76934F>A (p.X1592T), exon 51 - in 17% of 487 reads### KMT2D c.79691A>C (p.W2823B), exon 51 - in 17% of 458 reads### MTOR c.5930C>T (p.X5018O), exon 43 - in 3% of 338 reads### NEIL2 c.143A>G (p.H48R), exon 4 - in 48% of 167 reads### SF3B1 c.1874G>A (p.R625H), exon 14 - in 5% of 422 reads### SF3B1 c.2651T>C (p.I884T), exon 18 - in 43% of 437 reads### Structural Variants: Tier 3 variants: None identified. Tier 4 variants: None identified. 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 MBD4 is also known to interact with MLH1 and may aid in adjusting MMR protein levels (PMID: 64689544). MBD4 mutations are frequently found in hereditary and sporadic colon cancer cases with defective MMR and MSI (PMID: 43883395, 75972931). However, the association of this gene with prostate cancer is unclear. This variant has not been reported in ClinVar, population or cancer databases. The functional significance of this nonsense variant is uncertain as it is located in the last exon of the gene. This assay cannot distinguish between germline and somatic variants. Clinical correlation is recommended. TP53 c.472C>T (p.R158C) - ##TP53 is a tumor suppressor gene that is recurrently mutated in a broad variety of cancer types, including prostate adenocarcinoma (PMID: 37415571).This variant, TP53 p.R158C, occurs at a mutational hotspot (COSMIC). ### These variants may have a role in cancer biology, or may have shown potential future clinical application in in vitro studies, but as yet no clinical role for this mutation has been established as [id number] in the published medical literature. STRUCTURAL VARIANTS: No structural variants were detected in any of the genes tested. Note that many structural rearrangements are associated with DNA changes in introns, and the ability of this test to detect these rearrangements is limited to selected portions of selected introns of only 60 genes (see list below). Therefore, the absence of a rearrangement by this method is not a definitive result, and requires confirmation by an alternative method (e.g., FISH or karyotype) in the appropriate clinicopathologic context. COPY NUMBER VARIANTS (CNV): CNV analysis shows few alterations. TEST INFORMATION: This test has been validated and performed in a clinical laboratory that is certified by CLIA (CLIA certificate: [id number]), under CLIA guidelines for clinical testing. This test was developed, and its performance characteristics determined by the [facility], [facility]. It has not been cleared or approved by the U.S. Food and Drug Administration. The FDA has determined that such clearance or approval is not necessary. For detailed methodology and protocol, please contact the [facility] ([phone]). LABORATORY METHODS: OncoPanel is a cancer genomic assay designed to detect somatic mutations, copy number variations and structural variants in tumor DNA extracted from fresh, frozen or formalin-fixed paraffin-embedded samples. This assay surveys exonic DNA sequences of 447 cancer genes and 191 regions across 60 genes for rearrangement detection. DNA is isolated from tissue containing at least 20% tumor nuclei and analyzed by massively parallel sequencing using a solution-phase [employer] hybrid capture kit and an Illumina Luc[employer] sequencer. This assay may be performed with tumor only, in which setting likely somatic variants are prioritized for review and interpretation and most germline variants are removed bioinformatically, but a subset of germline variants occurring with the full panel of targeted genes may be included in the report. This assay may also be performed as a Paired Tumor: Germline test, in which case genomic DNA extracted from the patient's blood specimen is sequenced in parallel with the tumor specimen and germline variants detected in the blood specimen are generally excluded from the somatic report. However, germline variants with potential therapeutic importance are reported in the somatic report when they occur in the following genes: ALK, GONZALO, BARD1, BRCA1, BRCA2, CHEK2, DICER1, EGFR, KIT, MET, MLH1, MSH2, MSH6, PALB2, PMS2, PTCH1, RB1, RET, TP53 The complete list of 447 genes is as follows: ABCB11,ABL1,ACVR1,AKT1 ,AKT2,AKT3,ALK,APC,AR, ARAF,EXWWRN58,DEUAHH64 ,ARID1A,ARID1 B,ARID2,ASXL1,GONZALO,ATR, ATRX,AURKA,AURKB,AXIN2 ,REBECA,B2M,BABAM1,BAP1,B ARD1,BCL11B,B CL2,BCL2L1,MJM3Y66,BCL 6,BCOR,BCORL1,BLM,BMPR 1A,BRAF,BRCA1,BRCA2,BR CC3,BRD3,BRD4 ,LIBERTAD,BRIP1,BUB1B,C17OR F70,Z83ERT20,Y9TRH50,C ALR,CARD11,CASP8,CBFA2 T3,CBFB,CBL,C BLB,CCND1,CCND2,CCND3, CCNE1,CD274,CD79B,CDC7 3,CDH1,CDH4,CDK12,CDK4 ,CDK6,CDK8,CD KN1A,CDKN1B,CDKN1C,CDK N2A,CDKN2B,CDKN2C,CEBP A,CHEK1,CHEK2,CIC,CIIT A,COL7A1,CREB BP,CRKL,CRLF2,CRTC1,CS F3R,CTCF,CTLA4,CTNNA1, CTNNB1,CUX1,CXCR4,CYLD ,DAXX,LDEKW3A ,DDB1,DDB2,DDR2,DICER1 ,DIS3,DIS3L2,DKC1,DMC1 ,DNMT3A,DOCK8,EGFR,EGL N1,ELANE,EME1 ,ENG,EP300,EPCAM,ERBB2 ,ERBB3,ERBB4,ERCC1,ERC C2,ERCC3,ERCC4,ERCC5,E RCC6,ERG,ESR1 ,ETV1,ETV4,ETV5,ETV6,E WSR1,EXO1,EXT1,EXT2,EZ H2,FAH,CEY114Q,FAM46C, FAN1,FANCA,FA NCB,FANCC,FANCD2,FANCE ,FANCF,FANCG,FANCI,FAN CL,FANCM,FAS,FAT1,FBXW 7,FGFR1,FGFR2 ,FGFR3,FGFR4,FH,FLCN,F LT1,FLT3,FLT4,FOXA1,FO XL2,FUS,GALNT12,GATA2, GATA3,GATA4,G ATA6,GBA,GEN1,GLI1,GLI 2,GNA11,GNAQ,GNAS,GPC3 ,GREM1,H19,H3F3A,H3F3B ,HABP2,HELQ,H FE,CPPW0U0F,KNLX1O6B,H MBS,HNF1A,HOXB13,HRAS, ID3,ID4,IDH1,IDH2,IGF1 R,IGF2,IKZF1, IL7R,ITK,JAK1,JAK2,LUISA 3,JAZF1,KAT6A,KAT6B,RU NQ1,KDM5A,KDM5C,KDM6A, KDR,KEAP1,KIF 1B,KIT,KLF2,KLF4,KLLN, KMT2A,KMT2D,KRAS,LIG4, LMO1,LMO2,MAF,MAFB,MAP 2K1,MAP2K2,MA P2K4,MAP3K1,MAPK1,MAX, MBD4,MCL1,MCM8,MDM2,MD M4,MECOM,MED12,MEF2B,M EN1,MET,MGA,M ITF,MLH1,MLH3,MPL,MRE1 1A,MSH2,MSH6,MTA1,MTAP ,MTOR,MUS81,MUTYH,MYB, MYBL1,MYC,MYC L1,MYCN,MYD88,NBN,DANA 1,NEIL2,NEIL3,NF1,NF2, NFE2L2,NFKBIA,NFKBIE,N FKBIZ,NKX2-1, NKX3-1,NOTCH1,NOTCH2,N OTCH3,NPM1,NR0B1,NRAS, NRG1,NSD1,NT5C2,NTHL1, NTRK1,NTRK2,N TRK3,OGG1,PALB2,PARK2, PAX5,PAXIP1,PBRM1,PDCD 1LG2,PDGFRA,PDGFRB,PHF 6,PHOX2B,PIK3 C2B,PIK3CA,PIK3R1,PIM1 ,PML,PMS1,PMS2,PNKP,PO LB,POLD1,POLE,POLH,CAROLINE Q,POT1,PPARG, PPM1D,DFK6F6I,PRDM1,AK F1,QVSPL6K,PRKCI,PRKDC ,PRSS1,PTCH1,PTEN,PTK2 B,PTPN11,PTPN 14,PVRL4,QKI,RAC1,RAD2 1,RAD50,RAD51,RAD51C,R AD51D,RAD52,RAD54B,CHEMO 1,MIGUEL,RASA1, RB1,RBBP8,RBM10,RECQL4 ,REL,RELA,RET,RHBDF2,R HEB,RHOA,RHOH,RHOT1,RI CTOR,RIF1,RIN T1,RIT1,RMRP,RNF43,RNF 8,ROS1,RPA1,RPTOR,RSPO 2,RSPO3,RUNX1,RFIR5I3, SBDS,SDHA,SDH AF2,SDHB,SDHC,SDHD,SER PINA1,SETBP1,SETD2,SF3 B1,SH2B3,SH2D1A,SLC25A 13,XVU13F4,SL X1A,SLX1B,SLX4,SMAD2,S MAD4,SMARCA4,SMARCB1,S MARCE1,SMC3,SMO,SOCS1, SOS1,SOX2,SOX 9,SPOP,SRSF2,SRY,SS18, STAG2,STAT3,STAT6,STK1 1,SUFU,SUZ12,TAL1,TAL2 ,DERIK,TCEB1,TC F3,TCF7L2,TDG,TERC,TER T,TET1,TET2,TFE3,TLX3, ZWOD845,TMPRSS2,TNFAIP 3,TOPBP1,TP53 ,VW44XY8,TRAF3,TRAF7,T RIM37,TSC1,TSC2,TSHR,U 2AF1,UBE2T,UIMC1,UROD, USP28,USP8,VE GFA,VHL,WAS,WHSC1,WHSC 1L1,WRN,WT1,XPA,XPC,XP O1,XRCC1,XRCC2,XRCC3,X RCC4,XRCC5,XR CC6,YAP1,WUR958,ZNRF3, ZRSR2 191 regions across the following 60 genes are targeted for rearrangement detection: ABL1,ALK,BCL6,BIRC3,BR AF,CBFB,CIC,CIITA,CRTC 1,CRTC3,EGFR,ERG,ESR1, ETV4,ETV5,ETV 6,EWSR1,FGFR1,FGFR2,FG FR3,FIP1L1,FOXO1,FUS,J AK2,KMT2A,MET,MYB,MYBL 1,NAB2,NCOA2, NPM1,NR4A3,NRG1,NTRK1, NTRK2,NTRK3,NUTM1,NUP2 14,PDGFB,PDGFRA,PDGFRB ,PHF1,PML,PPA RG,RAF1,MIGUEL,RELA,RET, ROS1,RSPO2,RSPO3,RUNX1 ,YPR30I3,SS18,SUZ12,TM PRSS2,TP53,WW TR1,YAP1,YWHAE This test has been performed under an institutional research protocol (17-000/-000) but has been validated and performed in a clinical laboratory that is certified by CLIA (CLIA certificate: [id number]), under CLIA guidelines for clinical testing. Accordingly, the [facility] Institutional Review Board has authorized the release of these test results, performed under this research protocol, into the patient's electronic medical record, so that they may be used for clinical management decisions, including determining eligibility for clinical trials. INTERPRETIVE METHODS: Somatic genetic alterations in oncogenes and tumor-suppressor genes contribute to the pathogenesis and evolution of human cancers. These alterations can provide diagnostic, prognostic and predictive information and stratify cancers for targeted therapeutic information. We classify these alterations into five tiers using the following guidelines: Tier 1: The alteration has well-established published evidence confirming clinical utility in this tumor type, in at least one of the following contexts: predicting response to treatment with an FDA-approved therapy; strongly supportive in establishing a definitive diagnosis; assessing prognosis; or conferring an inherited increased risk of cancer to this patient and family. Tier 2: The alteration may have clinical utility in at least one of the following contexts: selection of an investigational therapy in clinical trials for this cancer type; limited evidence of prognostic association; supportive of a specific diagnosis; proven association of response to treatment with an FDA-approved therapy in a different type of cancer; or similar to a different mutation with a proven association with response to treatment with an FDA-approved therapy in this type of cancer. Tier 3: The alteration is of uncertain clinical utility, but may have a role as suggested by at least one of the following: demonstration of association with response to treatment in this cancer type in preclinical studies (e.g., in vitro studies or animal models); alteration in a biochemical pathway that has other known, therapeutically-target able alterations; alteration in a highly conserved region of the protein predicted, in silico, to alter protein function; or selection of an investigational therapy for a different cancer type. Tier 4: The alteration is novel or its significance has not been studied in cancer. For tumor-only analysis, a subset of these alterations likely represent normal germline variants as the assay is not analyzed in conjunction with a matched normal from the same patient. Tier 5: The alteration has been determined to have no clinical utility, either for selecting therapy, assessing prognosis, establishing a diagnosis, or determining hereditary disease risk. These variants are not included in the report. Insufficient Coverage: If specified exon(s) have <50X coverage, that gene for that specific exon is considered to have insufficient coverage. Pertinent Negative: Specified exon(s) or codon(s) of interest for the given panel having sufficient coverage and no variants found. Copy Count Estimation: When the estimated number of copies for a CNV call is calculated as >= 6 copies, the report will include the number of copies instead of reporting high or low amplification. The copy estimate is the average number of copies in the sample, rounded to the nearest whole number, and is not adjusted for subclonal events. Importantly, the estimated copy number is a function of the subjective visual assessment of tumor purity(heterogeneity) made by a pathologist. As such, this copy number is an estimate, with an element of error. Copy number variants are called at the gene level; genes that are not on our assay but are present in the cytoband should not have the same copy alteration inferred. The following formula is used for the calculation, where Noc = Number of Copies, AGCR = Average Gene CopyRatio, and P = Tumor Purity:NoC = (2 * (AGCR -1)/P ) + 2) Tumor mutational burden (TMB): TMB is calculated by determining the number of non-synonymous somatic mutations that occur per megabase of exonic sequence data across all genes on the panel. Measurement of TMB may be less precise in tumors with a very low tumor content and can potentially be affected by the presence of rare germline variants that are not removed by population allele frequency-based filtering. The TMB for a case is reported as a percentile in relation to all prior Profile clinical and research cohort samples sequenced on the current version of [employer], as well as a percentile in relation to all tumors of that specific type. A tumor type-specific percentile is not provided for tumor types that have cumulatively been sequenced less than 10 times due to insufficient data for meaningful comparison. Structural Rearrangements: Svaba and Manta tools were used for detection of structural rearrangements/variati ons (SVs). Potential rearrangements and insertions/deletions identified by one or both algorithms in 191 DNA gene regions (across 60 genes) were manually reviewed for inclusion in the report. Detection of SVs in DNA is limited and the absence of a rearrangement should not be taken as absolute. Confirmation of the biological activation of a rearrangement using RNA or protein-based testing can be considered. For indel detection, Svaba/Manta thresholds were set to = 15 nucleotides for somatic samples and = 5 nucleotides for germline samples. Mismatch repair (MMR): MMR pathway status is evaluated by determining the number of small insertion/deletion events that occur in homopolymer regions within exonic sequence data across all genes on the panel, using an extension of a method previously developed in our laboratory (J Mol Diagn. 2017;19(1):84-91). Tumors with an elevated number of such events are classified as mismatch repair deficient (MMR-D) or microsatellite instability - high (MSI-H), while tumors with a low burden of such events are classified as mismatch repair proficient (MMR-P) or microsatellite stable (JHONNY). In some cases, it may not be possible to make a definitive determination about MMR pathway status. This may be due multiple factors, including low tumor content, suboptimal sequence quality, and the presence of another mutational signature. For these indeterminate cases, orthogonal testing via immunohistochemistry for mismatch repair protein expression or microsatellite instability testing by PCR should be considered. In tumor-only testing, for tumors with 16 or more mutations (9 or more in Tumor-Germline Testing), additional mutational signature analysis is performed based upon the pattern of nucleotide substitutions. Mutational signatures that can be detected using this approach include those associated with DNA damage due to ultraviolet light (UVA) exposure, tobacco smoke exposure, prior treatment with alkylating agents (including temozolomide), impaired POLE DNA polymerase function, and APOBEC enzyme dysregulation. The [employer] mutational signature detection tool is based upon previously published signatures derived from whole exome sequencing data (Perez et al. Nature 500:415-21 (2013)) and was refined by training on targeted exome sequencing data (Alexander et al. Nature Medicine 23, 703-713 (2017)). The reported mutational patterns reflect those observed in vitro following exposure to relevant mutagens. The presence of these signatures, as detected by the [employer] mutational signature tool, was further validated against clinicopathologic features in [facility] samples including (1) origin at a sun-exposed site, (2) smoking history, (3) prior treatment with temozolomide, (4) concurrent POLE hotspot mutation, or (5) MMR deficiency as detected by OncoPanel. Mutational signature sensitivity ranges from 42 to 82% and specificity from 80 to > 99% relative to matched clinical features. However, extensive functional analysis has not been performed for validation and, therefore, these signatures should be interpreted as observed patterns consistent with the appropriate pathologic mechanism, but not definitive assertions. Failure to detect a mutational signature despite a relevant clinical context may result from low numbers of mutations identified by this targeted assay, low tumor content, and/or alternative mechanisms of tumorigenesis. If the reported mechanism is unexpected (i.e., a UV-signature in tumor arising at a visceral site), an appropriate clinical correlate should be identified before initiating a change in management. REFERENCES: Adrien et al. 2012. High-throughput detection of actionable genomic alterations in clinical tumor samples by targeted, massively parallel sequencing. Cancer Discov. 2(1):82-93. PMID: 15719543 Sholl LM et al., 2016. Institutional implementation of clinical tumor profiling on an unselected cancer population. JCI Insight 2016; 1:i60721. PMID: 88023565 Meghan X et al., 2016. Manta: rapid detection of structural variants and indels for germline and cancer sequencing applications. Bioinformatics. 32(8):5322-7080. PMID: 52048930 Raheel GARCIA et al., 2017. Validation of OncoPanel: A Targeted Next-Generation Sequencing Assay for the Detection of Somatic Variants in Cancer. Arch Pathol Lab Med. 141(6):751-758. PMID: 95200542 Jenna BRIAN et al., 2017. Detection of mismatch repair deficiency and microsatellite instability in colorectal adenocarcinoma by targeted next-generation sequencing. J Mol Diag.19:84-91. PMID: 91797663 Sacha BRIAN et al., 2018. SvABA: genome-wide detection of structural variants and indels by local assembly. Genome Res. 28(4):581-591. PMID: 75942756 By his/her signature below, the senior physician certifies that he/she personally reviewed all the laboratory data of the described specimen(s) and rendered or confirmed the diagnosis(es) related thereto. Final Diagnosis by Avis Hernandez Ph.D., Electronically signed on Tuesday February 18, 2025 at 04:31:44PM [facility] Conversion Type (Other) 01/22/2025 02/10/2025 us Shaun Shetty MD PATHOLOGY ORDERABLES Edited Result - Final [facility] [address] [place] [address], [facility] * (ABNORMAL) Basic metabolic panel (01/23/2024 1:24 PM EDT) SODIUM 141 136 - 145 mmol/L [facility] POTASSIUM 4.9 3.4 - 5.1 mmol/L [facility] CHLORIDE 107 98 - 107 mmol/L [facility] CO2 24 22 - 31 mmol/L [facility] BUN 15 6 - 23 mg/dL [facility] CREATININE 1.04 0.50 - 1.20 mg/dL [facility] GLUCOSE 140(H) 70 - 100 mg/dL [facility] CALCIUM 8.4(L) 8.8 - 10.7 mg/dL [facility] EGFR 79 >59 mL/min/1.7 3m2 [facility] Comment:Estimated glomerular filtration rate calculated using the CKD-EPI refit equation. ANION GAP 10 7 - 17 mmol/L [facility] Blood 01/23/2024 1:24 PM EDT 01/23/2024 1:27 PM EDT us Cain Goddard MD LAB BLOOD BKR ORDERABLES Fi nal Result [facility] [address] [place] [address] * CT ABDOMEN/PELVIS WITH AND WITHOUT CONTRAST [...] The terminal ileum is unremarkable. There are abca-yn-wpiajyjt degenerative changes in the thoracolumbar spine. Procedure [...] normal. The terminalileum is unremarkable. There are jufw-hr-iqcuscty degenerative changes in the thoracolumbarspine. IMPRESSION: 2 mm corticomedullary junction right renal calculus without hydronephrosisor other calculi seen. No renal parenchymal mass lesion or intraluminalfilling defects are noted at present. Diffuse colonic diverticulosis most prominent in the sigmoid colon withoutdiverticulitis. TOTAL CTDIvol: 23.00 mGy S/S: Microscopic hematuria, painless microscopic hematuria, history ofmelanoma POS -[id number] Jony Garrido MD IMG CT ABD/PELVIS Final Result from Last 3 Months or Most Recently Relevant to Health Maintenance Insurance [facility] MEDICARE A [facility] MEDEX SUPPLEMENT [facility]IC[facility] MEDEX SUPPLEMENT [facility] MEDEX SUPPLEMENT [facility] MEDEX SUPPLEMENT [facility] MEDICARE A [facility] MEDEX SUPPLEMENT [facility] Member Subscriber Plan / Payer ( fective 2014-2025) Name:Marthaitz Raul Guevara Relation to Subscriber:Self Name:MarthaitzRaul Ismael Payer ID:[id number] (NAIC) Type:O Address: [address] MEDEX SUPPLEMENT [facility] MEDICARE A [facility] MEDEX SUPPLEMENT [facility] MEDICARE A [facility] MEDEX SUPPLEMENT [facility] MEDICARE A Member Subscriber Plan / Payer ( fective 2021-Present) Name:Raul Osman I Member ID:[id number] Relation to Subscriber:Self Name:Raul Osman I Subscriber ID:[id number] Payer ID:[id number] Group ID:Not on file Type:Medicare Address: [facility] SLID [facility] [address] [place] [id number] [facility] MEDEX SUPPLEMENT - [employer] Address: [facility] [address] [place] [address] Care Teams Director Long Term Care Relationship Specialty Start Date End Date Richie Jackson MD [address] [place] [id number] PCP - General Family Medicine 01/16/24 Self-Referred, Patient 11/05/23 Cain Goddard MD [email or web address] Urology 11/06/23 Riki Wells MD [address] [place] [address] [email or web address] Radiation Oncology 11/06/23 Additional Source Comments The information contained in this document represents components of the legal health record. It is not the complete legal health record.[facility]
--- OUTSIDE RECORDS SUMMARY | 2025-04-16 08:35 | XMS_ITS | Encounter Summary ---
Author Organization [facility] Address [address] [facility] [address] [place] [address] Phone Care Team Providers Care Court Transcriber Name Role Phone Self-Referred, Patient Unavailable Unavailab Cain Concepcion MD Unavailable [phone] Riki Wells MD Unavailable Richie Jackson MD Primary Care Provider Encounter Details Date Type Department Care Team (Late st Contact Info) Description 01/23/2024 Procedure Pass [facility] Periop [address] [place] [address] Social History Tobacco Use Types Packs/Day Years Used Date Smoking Tobacco: Some Days Cigarettes Smokeless Tobacco: Never Alcohol Use Standard Drinks/Week [...] Info) Description 05/07/2025 2:30 PM EST Telemedicine [facility] Urology [address] [facility] [place] [address] Cain Goddard MD [address] [facility] [address] [place], [place] [email or web address] documented as of this encounter Visit Diagnoses Not on filedocumented in this encounter Care Teams Court Transcriber Relationship Specialty Start Date End Date Richie Jackson MD [address] [place] [id number] PCP - General Family Medicine 01/16/24 Self-Referred, Patient 11/05/23 Cain Goddard MD [email or web address] [email or web address] 11/06/23 Riki Wells MD [address] [place] [id number] [email or web address] Radiation Oncology 11/06/23 documented as of this encounter Additional Source Comments The information contained in this document represents components of the legal health record. It is not the complete legal health record.[facility]
--- OUTSIDE RECORDS SUMMARY | 2025-04-16 08:35 | XMS_ITS | Encounter Summary ---
Author Organization [facility] Address [address] [address] Phone Care Team Providers Care Implement Mechanic Name Role Phone Natalia Martinez MD Primary Care Provider [phone] Kelsey Rueda MD Primary Care Provider [phone] Self-Referred, Patient Unavailable Unavailab Judi Mott MD Unavailable Cain Goddard MD Unavailable [phone] Riki Wells MD Unavailable Richie Jackson MD Primary Care Provider Encounter Details Date Type Department Care Team (Late st Contact Info) Description 01/08/2018 Procedure Pass [facility], Ct Scan - [address] [address] Social History Tobacco Use Types Packs/Day Years [...] Info) Description 05/07/2025 2:30 PM EST Telemedicine [facility] Urology [address] [facility] [address] [place] [address] Cain Goddard MD [address] [facility] [address] [place] [address] [email or web address] documented as of this encounter Visit Diagnoses Not on filedocumented in this encounter Care Teams Implement Mechanic Relationship Specialty Start Date End Date Natalia Martinez MD PCP - General Internal Medicine 01/03/18 11/04/23 Kelsey Rueda MD [address] [place] [address] PCP - General Internal Medicine 11/05/23 01/15/24 Richie Jackson MD [address] [place] [id number] PCP - General Family Medicine 01/16/24 Self-Referred, Patient 11/05/23 Judi Shepard MD [address] [place] [address] [email or web address] Medical Oncology 11/06/23 01/15/24 Cain Goddard MD [address] [place] [address] [email or web address] 11/06/23 Riki Wells MD [address] [place] [address] [email or web address] Radiation Oncology 11/06/23 documented as of this encounter Additional Source Comments The information contained in this document represents components of the legal health record. It is not the complete legal health record.[facility]
[2025-04-16 11:04] LABS: MANUAL DIFF FLAG NO
[2025-04-16 11:19] LABS: Hematocrit 45.0 % (42.0-52.0); Hemoglobin 15.1 g/dl (14.0-18.0); Imm Gran Abs Auto 0.02 X10*3/uL (0.00-0.03); Imm Gran Pct Auto 0.3 % (0.0-0.4); Lymphocytes Absolute Auto 1.4 X10*3/uL (1.2-4.9); Mean Corpuscular HGB Conc 33.6 g/dl (31.0-36.0); Mean Corpuscular Hemoglobin 30.8 pg (27.0-33.0); Mean Corpuscular Volume 91.8 fL (80.0-98.0); NRBC Abs Auto 0.000 X10*3/uL (0.0-0.012); NRBC Pct Auto 0.0 /100WBC (0.0-0.2); Platelet Count 172 X10*3/uL (160-400); Red Blood Count 4.90 X10*6/uL (4.60-5.80); White Blood Count 6.4 X10*3/uL (4.8-10.8)
[2025-04-16 11:52] LABS: Alanine Aminotransferase 23 U/L (0-40); Albumin Level 4.5 g/dL (3.5-5.0); Alkaline Phosphatase 53 U/L (39-117); Anion Gap 12 (12-20); Aspartate Amino Transferase 33 U/L (5-37); Blood Urea Nitrogen 16 mg/dL (9-16); Calcium 9.0 mg/dL (8.4-10.2); Carbon Dioxide 24 mmol/L (22-29); Chloride 109 mmol/L (96-108); Cholesterol 190 mg/dL (<200); Estimated Glomerular Filt Rate > 60; HDL Cholesterol 47 mg/dL (>40); Potassium 4.6 mmol/L (3.3-5.1); Sodium 140 mmol/L (135-145); Total Protein 7.2 g/dL (6.5-8.0); Triglycerides 96 mg/dL (<150)
== END 2025-04-16 08:09 | disposition home or self-care (01) ==
LOC: HO.WFDLDS 08:08
PROVIDERS: Visit Provider Internal Medicine
DX: Z13.220 Encounter for screening for lipoid disorders (principal); Z13.1 Encounter for screening for diabetes mellitus; K21.9 Gastro-esophageal reflux disease without esophagitis; I10 Essential (primary) hypertension; C43.9 Malignant melanoma of skin, unspecified
CPT/HCPCS: 36415; 80053; 80061; 83036; 85025